=== PATIENT | female | born 1960 | race Caucasian/White ===

== ENCOUNTER 2020-11-12 12:28 | Inpatient (IN) | payer MEDICAID ==
[~2020-11-12] VITALS: Ht 165.1 cm; Wt 79.8 kg
[2020-11-12 14:39] LABS: CHLORIDE 115 mEq/L (98-107); INR 1.4; PROTHROMBIN TIME 15.1 sec (9.6-11.0)
[2020-11-12 14:41] LABS: BASOPHILS % 0.3 % (0.0-2.0); EOSINOPHILS % 0.4 % (0.0-5.0); HEMATOCRIT. 45.6 % (36.0-48.0); HEMOGLOBIN. 15.2 g/dL (12.0-16.0); LYMPHOCYTES % 33.4 % (20.0-50.0); MEAN CORPUSCULAR HEMOGLOBIN 31.2 pg (28.0-32.0); MEAN CORPUSCULAR VOLUME 93.3 fL (81.0-99.0); MEAN PLATELET VOLUME 9.5 fl (7.4-10.4); MONOCYTES % 9.8 % (2.0-8.0); NEUTROPHILS % 56.1 % (40.0-76.0); PLATELET 113 x1000/uL (130-400); RED BLOOD CELL COUNT 4.89 mill/uL (4.2-5.4); RED CELL DISTRIBUTION WIDTH 18.9 % (11.6-14.6)
[2020-11-12 14:44] LABS: ETHANOL BLOOD < 10 mg/dL
[2020-11-12 15:46] LABS: CLARITY URINE CLOUDY (CLEAR); COLOR URINE DARK YELLOW (YELLOW); KETONES URINE TRACE (NEGATIVE); LEUKOCYTE ESTERASE URINE 2+ (NEGATIVE); NITRITE URINE NEGATIVE (NEGATIVE); OCCULT BLOOD URINE 2+ (NEGATIVE); PROTEIN URINE 1+ (NEGATIVE); SPECIFIC GRAVITY URINE 1.026 (1.005-1.030)
[2020-11-12 15:57] LABS: *AMPHETAMINES SCREEN URINE NEGATIVE (NEGATIVE); *BARBITURATES SCREEN URINE NEGATIVE (NEGATIVE); *BENZODIAZEPINES SCREEN URINE NEGATIVE (NEGATIVE); *COCAINE SCREEN URINE NEGATIVE (NEGATIVE)
[2020-11-12 15:58] LABS: CANNABINOID URINE SCREEN NEGATIVE (NEGATIVE); METHADONE URINE SCREEN NEGATIVE (NEGATIVE); OPIATES URINE SCREEN NEGATIVE (NEGATIVE); PHENCYCLIDINE URINE SCREEN NEGATIVE (NEGATIVE)
[2020-11-12] MEDS: LACTULOSE 20G/30ML UDC PO NR ×2 (16:30→18:20)
[2020-11-12] MEDS ORDERED: DOCUSATE SODIUM 100MG CAPSULE PO PRN (17:45)
[2020-11-12] MEDS ORDERED: ONDANSETRON HCL 4MG/2ML INJ IV PRN (17:45)
[2020-11-12] MEDS ORDERED: HYDROCODONE/ACETAMINOPHEN 5/325MG TABLET PO PRN (17:45)
[2020-11-12] MEDS ORDERED: IPRATROPIUM/ALBUTEROL 0.5-3(2.5)MG/3ML NEB HHN PRN (17:45)
[2020-11-12] MEDS: SODIUM CHLORIDE 0.9% 1,000 ML IV SCH (18:22)
[2020-11-12 18:34] LABS: BG CARBOXYHEMOGLOBIN 0.3 % (0.5-1.5); BG DEOXYHEMOGLOBIN 1.5 % (0.0-5.0); BG FRACTION INSPIRED OXYGEN 21; BG HCO3 ACT 14.6 mmol/L (22.0-26.0); BG METHEMOGLOBIN 0.3 % (0.0-1.5); BG OXYGEN SATURATION 98.5 % (92.0-98.5); BG OXYHEMOGLOBIN 97.9 % (94.0-97.0); BG PCO2 17.4 mmHg (35.0-45.0); BG PH 7.543 (7.350-7.450); BG PO2 107.2 mmHg (75.0-100.0); BG SAMPLE SITE RIGHT BRACHIAL; BG TOTAL HEMOGLOBIN 14.1 g/dL (12.0-18.0); BG VENT MODE ROOM AIR
[2020-11-12] MEDS ORDERED: LACTULOSE 300 ML in WATER FOR IRRIGATION,STERILE 700 ML IR NR (19:00)
[2020-11-12] MEDS ORDERED: LACTULOSE 20G/30ML UDC PO SCH (22:00)
[2020-11-12] MEDS ORDERED: ALBUMIN HUMAN 25GM/100ML (25%) IV NR (23:15)
[2020-11-12] MEDS ORDERED: LEVOFLOXACIN 500MG PREMIX 100 ML IV NR (23:30)
[2020-11-12] MEDS ORDERED: FOLIC ACID 1 MG in SODIUM CHLORIDE 0.9% 500 ML IV NR (23:30)
[2020-11-13] MEDS: THIAMINE HCL 200 MG in SODIUM CHLORIDE 0.9% 98 ML IV SCH (01:31)
[2020-11-13] MEDS: LORAZEPAM 0.5MG TABLET PO PRN ×2 (02:47→07:45)
[2020-11-13 03:11] LABS: HEPATITIS B SURFACE ANTIGEN NEGATIVE
[2020-11-13] MEDS: LACTULOSE 20G/30ML UDC PO SCH ×3 (04:26→21:35)
[2020-11-13 04:40] LABS: BASOPHILS % 0.6 % (0.0-2.0); EOSINOPHILS % 0.8 % (0.0-5.0); HEMOGLOBIN. 13.6 g/dL (12.0-16.0); LYMPHOCYTES % 29.9 % (20.0-50.0); MEAN CORPUSCULAR VOLUME 91.6 fL (81.0-99.0); MONOCYTES % 9.8 % (2.0-8.0); NEUTROPHILS % 58.9 % (40.0-76.0); RED BLOOD CELL COUNT 4.37 mill/uL (4.2-5.4); RED CELL DISTRIBUTION WIDTH 18.8 % (11.6-14.6)
[2020-11-13 04:48] LABS: CHLORIDE 119 mEq/L (98-107)
[2020-11-13] MEDS: SODIUM CHLORIDE 0.9% 1,000 ML IV SCH ×2 (06:21→21:35)
[2020-11-13] MEDS: RIFAXIMIN 550 MG TABLET PO SCH ×2 (08:47→21:35)
[2020-11-13 10:21] LABS: MEAN PLATELET VOLUME 9.3 fl (7.4-10.4); PLATELET 99 x1000/uL (130-400)
[2020-11-13 15:00] VITALS: BP 116/56
[2020-11-13 16:20] VITALS: BP 113/57
[2020-11-13 18:37] LABS: FOLIC ACID (FOLATE) SERUM >20 ng/mL ng/mL (>5.38)
[2020-11-13 20:00] VITALS: BP 106/61
[2020-11-13 23:19] LABS: VITAMIN B12 SERUM 1135 pg/mL (211-911)
[2020-11-14] VITALS: BP 138/90
[2020-11-14] MEDS: THIAMINE HCL 200 MG in SODIUM CHLORIDE 0.9% 98 ML IV SCH ×2 (00:15→23:24)
[2020-11-14] MEDS ORDERED: ZINC220T4 (01:16)
[2020-11-14] MEDS ORDERED: DOCU100T MT (01:16)
[2020-11-14] MEDS ORDERED: KEPP500 MT (01:16)
[2020-11-14] MEDS ORDERED: ASCO-339 PO (01:16)
[2020-11-14] MEDS ORDERED: FURO20TA4 MT (01:16)
[2020-11-14] MEDS ORDERED: ASPI-1497 MT (01:16)
[2020-11-14] MEDS ORDERED: PANT40TA51 MT (01:16)
[2020-11-14] MEDS ORDERED: LACT10SO7 MT (01:16)
[2020-11-14] MEDS ORDERED: LIDO1ADH71 TOP (01:21)
[2020-11-14] MEDS ORDERED: SENN-257 MT (01:21)
[2020-11-14] MEDS ORDERED: SPIR25TA6 MT (01:21)
[2020-11-14 04:00] VITALS: BP 144/87
[2020-11-14] MEDS: LORAZEPAM 0.5MG TABLET PO PRN (04:06)
[2020-11-14] MEDS: LACTULOSE 20G/30ML UDC PO SCH ×2 (05:43→13:46)
[2020-11-14 08:00] VITALS: BP 144/88
[2020-11-14] MEDS ORDERED: LEVOFLOXACIN 250MG PREMIX 50 ML IV SCH (08:00)
[2020-11-14] MEDS: RIFAXIMIN 550 MG TABLET PO SCH ×2 (08:17→20:57)
[2020-11-14] MEDS: FOLIC ACID 1 MG in SODIUM CHLORIDE 0.9% 500 ML IV SCH (08:17)
[2020-11-14 09:37] LABS: BASOPHILS % 0.3 % (0.0-2.0); EOSINOPHILS % 1.3 % (0.0-5.0); HEMATOCRIT. 37.5 % (36.0-48.0); HEMOGLOBIN. 12.3 g/dL (12.0-16.0); LYMPHOCYTES % 28.7 % (20.0-50.0); MEAN CORPUSCULAR HEMOGLOBIN 30.6 pg (28.0-32.0); MEAN CORPUSCULAR VOLUME 93.3 fL (81.0-99.0); MEAN PLATELET VOLUME 9.2 fl (7.4-10.4); MONOCYTES % 10.9 % (2.0-8.0); NEUTROPHILS % 58.8 % (40.0-76.0); PLATELET 108 x1000/uL (130-400); RED BLOOD CELL COUNT 4.02 mill/uL (4.2-5.4); RED CELL DISTRIBUTION WIDTH 18.6 % (11.6-14.6)
[2020-11-14 09:40] LABS: CHLORIDE 124 mEq/L (98-107)
[2020-11-14 12:00] VITALS: BP 159/80
[2020-11-14] MEDS: SODIUM CHLORIDE 0.9% 1,000 ML IV SCH (13:47)
[2020-11-14 16:00] VITALS: BP 146/88
[2020-11-14] MEDS ORDERED: LACTULOSE 300 ML in WATER FOR IRRIGATION,STERILE 700 ML IR NR (18:00)
[2020-11-14] MEDS: POLYVINYL ALCOHOL OPHTH DROPS 15ML BOTHEYE SCH (18:21)
[2020-11-14] MEDS: NITROFURANTOIN 100MG M/M CAPSULE PO SCH (18:21)
[2020-11-14] MEDS: ERYTHROMYCIN BASE 0.5% OPHTH OINT 3.5GM BOTHEYE SCH (18:21)
[2020-11-14] MEDS: LACTULOSE 20G/30ML UDC NG SCH ×2 (18:21→20:57)
[2020-11-14 20:00] VITALS: BP 154/87
[2020-11-15] VITALS: BP 148/86
[2020-11-15] MEDS: ACETAMINOPHEN 325MG TABLET PO PRN (00:07)
[2020-11-15] MEDS: ERYTHROMYCIN BASE 0.5% OPHTH OINT 3.5GM BOTHEYE SCH ×3 (00:08→17:41)
[2020-11-15] MEDS: SODIUM CHLORIDE 0.9% 1,000 ML IV SCH ×2 (00:08→13:10)
[2020-11-15] MEDS: POLYVINYL ALCOHOL OPHTH DROPS 15ML BOTHEYE SCH ×4 (00:08→17:41)
[2020-11-15] MEDS: LACTULOSE 20G/30ML UDC NG SCH ×6 (00:19→21:12)
[2020-11-15 04:00] VITALS: BP 141/83
[2020-11-15 08:00] VITALS: BP 140/80
[2020-11-15] MEDS: RIFAXIMIN 550 MG TABLET PO SCH ×2 (09:20→21:12)
[2020-11-15] MEDS: NITROFURANTOIN 100MG M/M CAPSULE PO SCH ×2 (09:20→17:41)
[2020-11-15] MEDS: FOLIC ACID 1 MG in SODIUM CHLORIDE 0.9% 500 ML IV SCH (09:20)
[2020-11-15 10:00] LABS: BASOPHILS % 0.3 % (0.0-2.0); EOSINOPHILS % 0.8 % (0.0-5.0); HEMATOCRIT. 38.8 % (36.0-48.0); HEMOGLOBIN. 12.6 g/dL (12.0-16.0); LYMPHOCYTES % 26.3 % (20.0-50.0); MEAN CORPUSCULAR HEMOGLOBIN 30.2 pg (28.0-32.0); MEAN CORPUSCULAR VOLUME 92.5 fL (81.0-99.0); MEAN PLATELET VOLUME 8.8 fl (7.4-10.4); MONOCYTES % 9.9 % (2.0-8.0); NEUTROPHILS % 62.7 % (40.0-76.0); PLATELET 115 x1000/uL (130-400); RED BLOOD CELL COUNT 4.19 mill/uL (4.2-5.4); RED CELL DISTRIBUTION WIDTH 18.3 % (11.6-14.6)
[2020-11-15 10:07] LABS: CHLORIDE 125 mEq/L (98-107)
[2020-11-15 12:00] VITALS: BP 166/82
[2020-11-15 16:00] VITALS: BP 160/86
[2020-11-15 20:00] VITALS: BP 160/97
[2020-11-15] MEDS: THIAMINE HCL 200 MG in SODIUM CHLORIDE 0.9% 98 ML IV SCH (22:53)
[2020-11-16] VITALS: BP 140/88
[2020-11-16] MEDS: ERYTHROMYCIN BASE 0.5% OPHTH OINT 3.5GM BOTHEYE SCH ×3 (00:08→18:35)
[2020-11-16] MEDS: POLYVINYL ALCOHOL OPHTH DROPS 15ML BOTHEYE SCH ×5 (00:08→23:11)
[2020-11-16] MEDS: LACTULOSE 20G/30ML UDC NG SCH ×7 (00:17→22:54)
[2020-11-16] MEDS: SODIUM CHLORIDE 0.9% 1,000 ML IV SCH (02:33)
[2020-11-16 04:00] VITALS: BP 145/89
[2020-11-16 06:27] LABS: CHLORIDE 130 mEq/L (98-107)
[2020-11-16] MEDS ORDERED: POTASSIUM CHLORIDE 20MEQ/PACKET PO NR (07:15)
[2020-11-16 07:19] LABS: BASOPHILS % 0.4 % (0.0-2.0); EOSINOPHILS % 0.8 % (0.0-5.0); HEMATOCRIT. 39.9 % (36.0-48.0); HEMOGLOBIN. 12.8 g/dL (12.0-16.0); LYMPHOCYTES % 34.2 % (20.0-50.0); MEAN CORPUSCULAR VOLUME 96.5 fL (81.0-99.0); MEAN PLATELET VOLUME 9.2 fl (7.4-10.4); MONOCYTES % 10.2 % (2.0-8.0); NEUTROPHILS % 54.4 % (40.0-76.0); PLATELET 114 x1000/uL (130-400); RED BLOOD CELL COUNT 4.13 mill/uL (4.2-5.4); RED CELL DISTRIBUTION WIDTH 18.6 % (11.6-14.6)
[2020-11-16 08:23] VITALS: BP 150/98
[2020-11-16] MEDS ORDERED: KCL 20MEQ/100ML PREMIX 100 ML IV NR (09:00)
[2020-11-16] MEDS: NITROFURANTOIN 100MG M/M CAPSULE PO SCH ×2 (09:39→18:30)
[2020-11-16] MEDS: DEXT 5%/0.45% NACL 1000ML 1,000 ML IV SCH ×2 (09:42→20:35)
[2020-11-16] MEDS: FOLIC ACID 1 MG in SODIUM CHLORIDE 0.9% 500 ML IV SCH (11:45)
[2020-11-16] MEDS: RIFAXIMIN 550 MG TABLET PO SCH ×3 (11:53→22:58)
[2020-11-16 12:12] VITALS: BP 147/96
[2020-11-16 16:04] VITALS: BP 138/88
[2020-11-16 20:00] VITALS: BP 141/91
[2020-11-16] MEDS: THIAMINE HCL 200 MG in SODIUM CHLORIDE 0.9% 98 ML IV SCH (22:58)
[2020-11-17] VITALS: BP 137/92
[2020-11-17] MEDS: LACTULOSE 20G/30ML UDC NG SCH ×6 (01:15→21:39)
[2020-11-17] MEDS: ERYTHROMYCIN BASE 0.5% OPHTH OINT 3.5GM BOTHEYE SCH ×3 (02:40→17:08)
[2020-11-17 04:00] VITALS: BP 144/89
[2020-11-17 05:09] LABS: BASOPHILS % 0.3 % (0.0-2.0); EOSINOPHILS % 0.2 % (0.0-5.0); HEMATOCRIT. 38.7 % (36.0-48.0); HEMOGLOBIN. 12.7 g/dL (12.0-16.0); LYMPHOCYTES % 29.4 % (20.0-50.0); MEAN CORPUSCULAR HEMOGLOBIN 30.8 pg (28.0-32.0); MEAN CORPUSCULAR VOLUME 94.1 fL (81.0-99.0); MEAN PLATELET VOLUME 8.9 fl (7.4-10.4); MONOCYTES % 9.3 % (2.0-8.0); NEUTROPHILS % 60.8 % (40.0-76.0); PLATELET 108 x1000/uL (130-400); RED BLOOD CELL COUNT 4.11 mill/uL (4.2-5.4); RED CELL DISTRIBUTION WIDTH 18.4 % (11.6-14.6)
[2020-11-17 05:19] LABS: CHLORIDE 134 mEq/L (98-107)
[2020-11-17] MEDS: POLYVINYL ALCOHOL OPHTH DROPS 15ML BOTHEYE SCH ×3 (06:55→17:18)
[2020-11-17 08:07] VITALS: BP 149/98
[2020-11-17] MEDS: NITROFURANTOIN 100MG M/M CAPSULE PO SCH ×2 (09:39→17:08)
[2020-11-17] MEDS: RIFAXIMIN 550 MG TABLET PO SCH ×2 (09:39→21:39)
[2020-11-17 11:22] VITALS: BP 161/91
[2020-11-17] MEDS: FOLIC ACID 1 MG in SODIUM CHLORIDE 0.9% 500 ML IV SCH (12:49)
[2020-11-17] MEDS: DEXT 5%/0.45% NACL 1000ML 1,000 ML IV SCH ×2 (12:50→23:15)
[2020-11-17 16:11] VITALS: BP 100/53
[2020-11-17 20:00] VITALS: BP 141/89
[2020-11-18] VITALS: BP 140/89
[2020-11-18] MEDS: ERYTHROMYCIN BASE 0.5% OPHTH OINT 3.5GM BOTHEYE SCH ×3 (00:34→13:37)
[2020-11-18] MEDS: POLYVINYL ALCOHOL OPHTH DROPS 15ML BOTHEYE SCH ×4 (00:34→18:00)
[2020-11-18] MEDS: LACTULOSE 20G/30ML UDC NG SCH ×6 (02:10→21:26)
[2020-11-18 04:00] VITALS: BP 154/93
[2020-11-18 06:43] LABS: CHLORIDE 133 mEq/L (98-107)
[2020-11-18 06:52] LABS: BASOPHILS % 0.4 % (0.0-2.0); EOSINOPHILS % 0.5 % (0.0-5.0); HEMATOCRIT. 37.2 % (36.0-48.0); HEMOGLOBIN. 12.4 g/dL (12.0-16.0); LYMPHOCYTES % 32.5 % (20.0-50.0); MEAN CORPUSCULAR HEMOGLOBIN 31.2 pg (28.0-32.0); MEAN CORPUSCULAR VOLUME 93.7 fL (81.0-99.0); MEAN PLATELET VOLUME 8.7 fl (7.4-10.4); MONOCYTES % 9.3 % (2.0-8.0); NEUTROPHILS % 57.3 % (40.0-76.0); PLATELET 101 x1000/uL (130-400); RED BLOOD CELL COUNT 3.98 mill/uL (4.2-5.4); RED CELL DISTRIBUTION WIDTH 18.3 % (11.6-14.6)
[2020-11-18] MEDS: RIFAXIMIN 550 MG TABLET PO SCH (09:00)
[2020-11-18] MEDS: NITROFURANTOIN 100MG M/M CAPSULE PO SCH ×2 (11:30→17:00)
[2020-11-18] MEDS: DEXT 5%/0.45% NACL 1000ML 1,000 ML IV SCH (12:35)
[2020-11-18] MEDS: FOLIC ACID 1 MG in SODIUM CHLORIDE 0.9% 500 ML IV SCH (13:36)
[2020-11-18 20:00] VITALS: BP 117/73
[2020-11-18] MEDS: ACETAMINOPHEN 325MG TABLET PO PRN (21:28)
[2020-11-18] MEDS ORDERED: POTASSIUM CHLORIDE 20MEQ TABLET SR PO NR (22:45)
[2020-11-19] VITALS: BP 142/92
[2020-11-19] MEDS: POLYVINYL ALCOHOL OPHTH DROPS 15ML BOTHEYE SCH ×5 (00:05→23:54)
[2020-11-19] MEDS: ERYTHROMYCIN BASE 0.5% OPHTH OINT 3.5GM BOTHEYE SCH ×3 (00:05→17:04)
[2020-11-19] MEDS: RIFAXIMIN 550 MG TABLET PO SCH ×3 (00:13→21:22)
[2020-11-19] MEDS: DEXT 5%/0.45% NACL 1000ML 1,000 ML IV SCH (01:55)
[2020-11-19 04:00] VITALS: BP 140/75
[2020-11-19] MEDS: LACTULOSE 20G/30ML UDC NG SCH ×5 (06:15→21:22)
[2020-11-19 06:43] LABS: CHLORIDE 125 mEq/L (98-107)
[2020-11-19 06:47] LABS: BASOPHILS % 0.3 % (0.0-2.0); EOSINOPHILS % 0.4 % (0.0-5.0); HEMATOCRIT. 39.9 % (36.0-48.0); HEMOGLOBIN. 13.2 g/dL (12.0-16.0); LYMPHOCYTES % 33.2 % (20.0-50.0); MEAN CORPUSCULAR HEMOGLOBIN 30.9 pg (28.0-32.0); MEAN CORPUSCULAR VOLUME 93.2 fL (81.0-99.0); MEAN PLATELET VOLUME 8.8 fl (7.4-10.4); NEUTROPHILS % 57.1 % (40.0-76.0); PLATELET 109 x1000/uL (130-400); RED BLOOD CELL COUNT 4.28 mill/uL (4.2-5.4); RED CELL DISTRIBUTION WIDTH 18.6 % (11.6-14.6)
[2020-11-19 08:00] VITALS: BP 156/88
[2020-11-19] MEDS ORDERED: RIFAXIMIN 550 MG TABLET PO SCH (09:00)
[2020-11-19] MEDS: NITROFURANTOIN 100MG M/M CAPSULE PO SCH ×2 (09:22→17:03)
[2020-11-19] MEDS: DEXTROSE 5% WATER 1,000 ML IV SCH ×2 (09:45→14:59)
[2020-11-19] MEDS: PANTOPRAZOLE 40MG DR TABLET PO SCH (10:45)
[2020-11-19] MEDS ORDERED: POTASSIUM CHLORIDE 20MEQ/PACKET PO SCH (10:45)
[2020-11-19 12:00] VITALS: BP 166/87
[2020-11-19] MEDS: ASPIRIN 81MG EC TABLET PO SCH (12:12)
[2020-11-19] MEDS: ASCORBIC ACID 500 MG TABLET PO SCH (12:13)
[2020-11-19] MEDS: ZINC SULFATE 220 MG ( 50 ) CAPSULE PO SCH (12:13)
[2020-11-19] MEDS: LEVETIRACETAM 500MG TABLET PO SCH (12:13)
[2020-11-19] MEDS: SPIRONOLACTONE 25MG TABLET PO SCH (12:13)
[2020-11-19] MEDS ORDERED: LIDOCAINE HCL 1% 20ML VIAL (Pyxis) INJ ONE (12:18)
[2020-11-19] MEDS: FUROSEMIDE 20MG TABLET PO SCH (12:21)
[2020-11-19 16:00] VITALS: BP 155/91
[2020-11-19 20:00] VITALS: BP 139/88
[2020-11-20] VITALS: BP 155/91
[2020-11-20] MEDS: ERYTHROMYCIN BASE 0.5% OPHTH OINT 3.5GM BOTHEYE SCH ×3 (00:30→17:09)
[2020-11-20] MEDS: LACTULOSE 20G/30ML UDC NG SCH ×6 (00:34→21:03)
[2020-11-20] MEDS: DEXTROSE 5% WATER 1,000 ML IV SCH ×2 (00:34→12:25)
[2020-11-20 04:00] VITALS: BP 133/90
[2020-11-20] MEDS: POLYVINYL ALCOHOL OPHTH DROPS 15ML BOTHEYE SCH ×3 (05:20→17:20)
[2020-11-20 06:49] LABS: BASOPHILS % 0.3 % (0.0-2.0); EOSINOPHILS % 0.8 % (0.0-5.0); HEMATOCRIT. 36.1 % (36.0-48.0); HEMOGLOBIN. 12.1 g/dL (12.0-16.0); LYMPHOCYTES % 33.7 % (20.0-50.0); MEAN CORPUSCULAR HEMOGLOBIN 30.9 pg (28.0-32.0); MEAN CORPUSCULAR VOLUME 92.1 fL (81.0-99.0); MEAN PLATELET VOLUME 8.8 fl (7.4-10.4); MONOCYTES % 9.9 % (2.0-8.0); NEUTROPHILS % 55.3 % (40.0-76.0); PLATELET 88 x1000/uL (130-400); RED BLOOD CELL COUNT 3.92 mill/uL (4.2-5.4); RED CELL DISTRIBUTION WIDTH 18.7 % (11.6-14.6)
[2020-11-20 07:17] LABS: CHLORIDE 124 mEq/L (98-107)
[2020-11-20 07:30] LABS: PHOSPHORUS 1.4 mg/dL (2.5-4.9)
[2020-11-20 08:00] VITALS: BP 148/83
[2020-11-20] MEDS: LEVETIRACETAM 500MG TABLET PO SCH (08:14)
[2020-11-20] MEDS: RIFAXIMIN 550 MG TABLET PO SCH ×2 (08:14→21:36)
[2020-11-20] MEDS: PANTOPRAZOLE 40MG DR TABLET PO SCH (08:14)
[2020-11-20] MEDS: ZINC SULFATE 220 MG ( 50 ) CAPSULE PO SCH (08:14)
[2020-11-20] MEDS: FUROSEMIDE 20MG TABLET PO SCH (08:15)
[2020-11-20] MEDS: ASCORBIC ACID 500 MG TABLET PO SCH (08:15)
[2020-11-20] MEDS: ASPIRIN 81MG EC TABLET PO SCH (08:15)
[2020-11-20] MEDS: SPIRONOLACTONE 25MG TABLET PO SCH (08:15)
[2020-11-20 12:00] VITALS: BP 134/89
[2020-11-20] MEDS ORDERED: POTASSIUM PHOS,M-BASIC-D-BASIC 20 MMOL in DEXT 5% WATER 243.3333 ML IV NR (14:00)
[2020-11-20] MEDS ORDERED: MAGNESIUM 4 G PREMIX 100 ML IV NR (14:00)
[2020-11-20 16:00] VITALS: BP 130/74
[2020-11-20] MEDS: MEGESTROL ACETATE 400 MG/10 ML UDC PO SCH (17:09)
[2020-11-20 20:00] VITALS: BP 121/64
[2020-11-21] VITALS: BP 109/65
[2020-11-21] MEDS: LACTULOSE 20G/30ML UDC NG SCH ×6 (00:49→21:25)
[2020-11-21] MEDS: DEXTROSE 5% WATER 1,000 ML IV SCH ×2 (00:53→10:02)
[2020-11-21] MEDS: ERYTHROMYCIN BASE 0.5% OPHTH OINT 3.5GM BOTHEYE SCH ×3 (00:53→16:48)
[2020-11-21] MEDS: POLYVINYL ALCOHOL OPHTH DROPS 15ML BOTHEYE SCH ×4 (00:53→18:00)
[2020-11-21 04:00] VITALS: BP 110/60
[2020-11-21 05:39] LABS: BASOPHILS % 0.3 % (0.0-2.0); EOSINOPHILS % 1.7 % (0.0-5.0); HEMATOCRIT. 36.5 % (36.0-48.0); HEMOGLOBIN. 11.9 g/dL (12.0-16.0); LYMPHOCYTES % 31.6 % (20.0-50.0); MEAN CORPUSCULAR HEMOGLOBIN 30.4 pg (28.0-32.0); MEAN CORPUSCULAR VOLUME 93.3 fL (81.0-99.0); MEAN PLATELET VOLUME 9.2 fl (7.4-10.4); MONOCYTES % 8.2 % (2.0-8.0); NEUTROPHILS % 58.2 % (40.0-76.0); PLATELET 85 x1000/uL (130-400); RED BLOOD CELL COUNT 3.92 mill/uL (4.2-5.4); RED CELL DISTRIBUTION WIDTH 18.3 % (11.6-14.6)
[2020-11-21 05:50] LABS: INR 1.7; PROTHROMBIN TIME 17.5 sec (9.6-11.0)
[2020-11-21 05:53] LABS: CHLORIDE 116 mEq/L (98-107)
[2020-11-21 06:00] LABS: PHOSPHORUS 2.2 mg/dL (2.5-4.9)
[2020-11-21] MEDS: PANTOPRAZOLE 40MG DR TABLET PO SCH (06:15)
[2020-11-21 08:11] VITALS: BP 127/73
[2020-11-21] MEDS: ASPIRIN 81MG EC TABLET PO SCH (10:00)
[2020-11-21] MEDS: FUROSEMIDE 20MG TABLET PO SCH (10:00)
[2020-11-21] MEDS: ASCORBIC ACID 500 MG TABLET PO SCH (10:00)
[2020-11-21] MEDS: MEGESTROL ACETATE 400 MG/10 ML UDC PO SCH (10:00)
[2020-11-21] MEDS: LEVETIRACETAM 500MG TABLET PO SCH (10:01)
[2020-11-21] MEDS: SPIRONOLACTONE 25MG TABLET PO SCH (10:01)
[2020-11-21] MEDS: RIFAXIMIN 550 MG TABLET PO SCH ×2 (10:01→21:25)
[2020-11-21] MEDS: ZINC SULFATE 220 MG ( 50 ) CAPSULE PO SCH (10:02)
[2020-11-21 11:05] VITALS: BP 126/75
[2020-11-21] MEDS ORDERED: POTASSIUM PHOS,M-BASIC-D-BASIC 20 MMOL in DEXT 5% WATER 243.3333 ML IV NR (12:00)
[2020-11-21] MEDS: ACETAMINOPHEN 325MG TABLET PO PRN (16:40)
[2020-11-21 16:44] VITALS: BP 133/71
[2020-11-21 20:00] VITALS: BP 154/55
[2020-11-22] VITALS: BP 124/66
[2020-11-22] MEDS: POLYVINYL ALCOHOL OPHTH DROPS 15ML BOTHEYE SCH ×4 (00:03→18:05)
[2020-11-22] MEDS: LACTULOSE 20G/30ML UDC NG SCH ×6 (01:54→21:35)
[2020-11-22 04:00] VITALS: BP 133/78
[2020-11-22] MEDS: DEXTROSE 5% WATER 1,000 ML IV SCH ×2 (04:10→17:45)
[2020-11-22 07:06] LABS: CHLORIDE 111 mEq/L (98-107)
[2020-11-22 07:13] LABS: PHOSPHORUS 2.2 mg/dL (2.5-4.9)
[2020-11-22 08:15] VITALS: BP 112/77
[2020-11-22 08:30] LABS: BASOPHILS % 0.3 % (0.0-2.0); EOSINOPHILS % 1.4 % (0.0-5.0); HEMATOCRIT. 39.2 % (36.0-48.0); LYMPHOCYTES % 25.2 % (20.0-50.0); MEAN CORPUSCULAR HEMOGLOBIN 30.7 pg (28.0-32.0); MEAN CORPUSCULAR VOLUME 92.4 fL (81.0-99.0); MONOCYTES % 7.9 % (2.0-8.0); NEUTROPHILS % 65.2 % (40.0-76.0); PLATELET 84 x1000/uL (130-400); RED BLOOD CELL COUNT 4.24 mill/uL (4.2-5.4); RED CELL DISTRIBUTION WIDTH 18.1 % (11.6-14.6)
[2020-11-22] MEDS: ASCORBIC ACID 500 MG TABLET PO SCH (09:46)
[2020-11-22] MEDS: LEVETIRACETAM 500MG TABLET PO SCH (09:46)
[2020-11-22] MEDS: SPIRONOLACTONE 25MG TABLET PO SCH (09:47)
[2020-11-22] MEDS: PANTOPRAZOLE 40MG DR TABLET PO SCH (09:48)
[2020-11-22] MEDS: FUROSEMIDE 20MG TABLET PO SCH (09:48)
[2020-11-22] MEDS: RIFAXIMIN 550 MG TABLET PO SCH ×2 (09:48→21:35)
[2020-11-22] MEDS: ASPIRIN 81MG EC TABLET PO SCH (09:49)
[2020-11-22] MEDS: ZINC SULFATE 220 MG ( 50 ) CAPSULE PO SCH (09:49)
[2020-11-22] MEDS: ACETAMINOPHEN 325MG TABLET PO PRN ×2 (09:50→21:34)
[2020-11-22] MEDS ORDERED: SODIUM PHOS,M-BASIC-D-BASIC 15 MM in DEXT 5% WATER 245 ML IV NR (11:00)
[2020-11-22] MEDS: SODIUM BICARBONATE 50 MEQ in SODIUM CHLORIDE 0.45% 1,000 ML IV SCH ×2 (11:48→12:13)
[2020-11-22 12:02] VITALS: BP 112/79
[2020-11-22] MEDS ORDERED: RIFA550T PO (12:09)
[2020-11-22] MEDS: MEGESTROL ACETATE 400 MG/10 ML UDC PO SCH (12:24)
[2020-11-22 20:00] VITALS: BP 125/86
[2020-11-23] VITALS: BP 131/82
[2020-11-23 04:00] VITALS: BP 127/69
[2020-11-23 05:58] LABS: BASOPHILS % 0.2 % (0.0-2.0); EOSINOPHILS % 0.7 % (0.0-5.0); HEMATOCRIT. 36.7 % (36.0-48.0); HEMOGLOBIN. 12.4 g/dL (12.0-16.0); LYMPHOCYTES % 21.6 % (20.0-50.0); MEAN CORPUSCULAR HEMOGLOBIN 30.7 pg (28.0-32.0); MEAN CORPUSCULAR VOLUME 90.7 fL (81.0-99.0); MEAN PLATELET VOLUME 9.8 fl (7.4-10.4); MONOCYTES % 8.8 % (2.0-8.0); NEUTROPHILS % 68.7 % (40.0-76.0); PLATELET 107 x1000/uL (130-400); RED BLOOD CELL COUNT 4.05 mill/uL (4.2-5.4); RED CELL DISTRIBUTION WIDTH 17.7 % (11.6-14.6)
[2020-11-23 06:14] LABS: CHLORIDE 106 mEq/L (98-107)
[2020-11-23] MEDS: LACTULOSE 20G/30ML UDC NG SCH ×6 (06:17→20:54)
[2020-11-23] MEDS: DEXTROSE 5% WATER 1,000 ML IV SCH ×2 (06:17→20:54)
[2020-11-23] MEDS: PANTOPRAZOLE 40MG DR TABLET PO SCH (06:17)
[2020-11-23] MEDS: POLYVINYL ALCOHOL OPHTH DROPS 15ML BOTHEYE SCH ×4 (06:18→17:46)
[2020-11-23 06:20] LABS: PHOSPHORUS 2.4 mg/dL (2.5-4.9)
[2020-11-23 08:00] VITALS: BP 140/73
[2020-11-23] MEDS: RIFAXIMIN 550 MG TABLET PO SCH ×2 (10:07→20:54)
[2020-11-23] MEDS: LEVETIRACETAM 500MG TABLET PO SCH (10:07)
[2020-11-23] MEDS: ASPIRIN 81MG EC TABLET PO SCH (10:08)
[2020-11-23] MEDS: ZINC SULFATE 220 MG ( 50 ) CAPSULE PO SCH (10:08)
[2020-11-23] MEDS: FUROSEMIDE 20MG TABLET PO SCH (10:08)
[2020-11-23] MEDS: ASCORBIC ACID 500 MG TABLET PO SCH (10:08)
[2020-11-23] MEDS: SPIRONOLACTONE 25MG TABLET PO SCH (10:09)
[2020-11-23] MEDS: MEGESTROL ACETATE 400 MG/10 ML UDC PO SCH (10:09)
[2020-11-23 12:00] VITALS: BP 133/63
[2020-11-23] MEDS: SODIUM BICARBONATE 50 MEQ in SODIUM CHLORIDE 0.45% 1,000 ML IV SCH ×2 (15:00)
[2020-11-23 16:00] VITALS: BP 121/64
[2020-11-23] MEDS: SODIUM PHOS,M-BASIC-D-BASIC 15 MM in DEXT 5% WATER 250 ML IV SCH (17:45)
[2020-11-23 20:00] VITALS: BP 106/76
[2020-11-24] VITALS: BP 129/65
[2020-11-24] MEDS: LACTULOSE 20G/30ML UDC NG SCH ×6 (00:08→21:11)
[2020-11-24] MEDS: POLYVINYL ALCOHOL OPHTH DROPS 15ML BOTHEYE SCH ×4 (00:08→18:09)
[2020-11-24 04:00] VITALS: BP 129/80
[2020-11-24] MEDS: SODIUM BICARBONATE 50 MEQ in SODIUM CHLORIDE 0.45% 1,000 ML IV SCH ×2 (05:13→18:09)
[2020-11-24 08:00] VITALS: BP 142/86
[2020-11-24] MEDS: RIFAXIMIN 550 MG TABLET PO SCH (08:19)
[2020-11-24] MEDS: ASPIRIN 81MG EC TABLET PO SCH (08:19)
[2020-11-24] MEDS: ZINC SULFATE 220 MG ( 50 ) CAPSULE PO SCH (08:19)
[2020-11-24] MEDS: ASCORBIC ACID 500 MG TABLET PO SCH (08:19)
[2020-11-24] MEDS: PANTOPRAZOLE 40MG DR TABLET PO SCH (08:19)
[2020-11-24] MEDS: FUROSEMIDE 20MG TABLET PO SCH (08:19)
[2020-11-24] MEDS: SPIRONOLACTONE 25MG TABLET PO SCH (08:20)
[2020-11-24] MEDS: MEGESTROL ACETATE 400 MG/10 ML UDC PO SCH (08:20)
[2020-11-24] MEDS: LEVETIRACETAM 500MG TABLET PO SCH (08:20)
[2020-11-24 10:58] LABS: BASOPHILS % 0.4 % (0.0-2.0); EOSINOPHILS % 0.5 % (0.0-5.0); HEMATOCRIT. 36.6 % (36.0-48.0); HEMOGLOBIN. 12.7 g/dL (12.0-16.0); LYMPHOCYTES % 21.5 % (20.0-50.0); MEAN CORPUSCULAR HEMOGLOBIN 31.5 pg (28.0-32.0); MEAN CORPUSCULAR VOLUME 90.5 fL (81.0-99.0); MEAN PLATELET VOLUME 9.8 fl (7.4-10.4); MONOCYTES % 13.1 % (2.0-8.0); NEUTROPHILS % 64.5 % (40.0-76.0); PLATELET 104 x1000/uL (130-400); RED BLOOD CELL COUNT 4.04 mill/uL (4.2-5.4); RED CELL DISTRIBUTION WIDTH 18.1 % (11.6-14.6)
[2020-11-24 11:03] LABS: CHLORIDE 103 mEq/L (98-107)
[2020-11-24 11:09] LABS: PHOSPHORUS 2.8 mg/dL (2.5-4.9)
[2020-11-24 12:00] VITALS: BP 131/85
[2020-11-24 16:00] VITALS: BP 133/85
[2020-11-24] MEDS ORDERED: DEXTROSE 50% WATER 50ML SYRINGE IV PRN ×2 (17:15)
[2020-11-24] MEDS: BLOOD SUGAR DIAGNOSTIC STRIP TEST SCH ×2 (17:20→21:06)
[2020-11-24] MEDS: SODIUM PHOS,M-BASIC-D-BASIC 15 MM in DEXT 5% WATER 250 ML IV SCH (17:25)
[2020-11-24] MEDS: INSULIN LISPRO 100 UNITS/ML SUBCUT SCH ×2 (18:41→21:12)
[2020-11-24 20:00] VITALS: BP 130/80
[2020-11-25] VITALS: BP 110/75
[2020-11-25] MEDS: POLYVINYL ALCOHOL OPHTH DROPS 15ML BOTHEYE SCH ×5 (00:21→23:16)
[2020-11-25] MEDS: LACTULOSE 20G/30ML UDC NG SCH ×6 (00:22→21:27)
[2020-11-25 04:00] VITALS: BP 117/77
[2020-11-25] MEDS: PANTOPRAZOLE 40MG DR TABLET PO SCH (06:26)
[2020-11-25] MEDS: BLOOD SUGAR DIAGNOSTIC STRIP TEST SCH ×4 (06:26→21:27)
[2020-11-25] MEDS: INSULIN LISPRO 100 UNITS/ML SUBCUT SCH ×4 (06:27→21:45)
[2020-11-25] MEDS ORDERED: LACTULOSE 20G/30ML UDC PO ONE (07:15)
[2020-11-25] MEDS ORDERED: LACTULOSE 20G/30ML UDC PO PRN (07:15)
[2020-11-25 08:00] VITALS: BP 120/78
[2020-11-25] MEDS: SODIUM BICARBONATE 50 MEQ in SODIUM CHLORIDE 0.45% 1,000 ML IV SCH (09:25)
[2020-11-25] MEDS: ASPIRIN 81MG EC TABLET PO SCH (09:26)
[2020-11-25] MEDS: FUROSEMIDE 20MG TABLET PO SCH (09:26)
[2020-11-25] MEDS: LEVETIRACETAM 500MG TABLET PO SCH (09:26)
[2020-11-25] MEDS: SPIRONOLACTONE 25MG TABLET PO SCH (09:26)
[2020-11-25] MEDS: ASCORBIC ACID 500 MG TABLET PO SCH (09:26)
[2020-11-25] MEDS: ZINC SULFATE 220 MG ( 50 ) CAPSULE PO SCH (09:26)
[2020-11-25] MEDS: MEGESTROL ACETATE 400 MG/10 ML UDC PO SCH (09:27)
[2020-11-25 09:35] LABS: BASOPHILS % 0.4 % (0.0-2.0); CHLORIDE 101 mEq/L (98-107); EOSINOPHILS % 0.5 % (0.0-5.0); HEMATOCRIT. 37.2 % (36.0-48.0); HEMOGLOBIN. 12.6 g/dL (12.0-16.0); LYMPHOCYTES % 16.4 % (20.0-50.0); MEAN CORPUSCULAR HEMOGLOBIN 31.3 pg (28.0-32.0); MEAN CORPUSCULAR VOLUME 92.5 fL (81.0-99.0); MEAN PLATELET VOLUME 10.3 fl (7.4-10.4); MONOCYTES % 12.4 % (2.0-8.0); NEUTROPHILS % 70.3 % (40.0-76.0); PLATELET 124 x1000/uL (130-400); RED BLOOD CELL COUNT 4.02 mill/uL (4.2-5.4); RED CELL DISTRIBUTION WIDTH 18.3 % (11.6-14.6)
[2020-11-25 09:41] LABS: PHOSPHORUS 3.4 mg/dL (2.5-4.9)
[2020-11-25 12:00] VITALS: BP 104/72
[2020-11-25] MEDS ORDERED: DEXTROSE 50% WATER 50ML SYRINGE IV PRN (12:15)
[2020-11-25] MEDS ORDERED: BLOOD SUGAR DIAGNOSTIC STRIP TEST SCH (12:20)
[2020-11-25 16:19] VITALS: BP 122/69
[2020-11-25] MEDS: CITRIC ACID/SODIUM CITRATE SOLN 30ML UDC PO SCH ×2 (16:57→23:16)
[2020-11-25 20:00] VITALS: BP 81/53
[2020-11-26] VITALS: BP 78/42
[2020-11-26] MEDS: LACTULOSE 20G/30ML UDC NG SCH ×6 (01:08→21:15)
[2020-11-26 04:00] VITALS: BP 93/46
[2020-11-26] MEDS: POLYVINYL ALCOHOL OPHTH DROPS 15ML BOTHEYE SCH ×3 (05:41→17:18)
[2020-11-26] MEDS: PANTOPRAZOLE 40MG DR TABLET PO SCH (06:52)
[2020-11-26] MEDS: BLOOD SUGAR DIAGNOSTIC STRIP TEST SCH ×4 (06:53→21:43)
[2020-11-26 08:30] VITALS: BP 105/66
[2020-11-26] MEDS: CITRIC ACID/SODIUM CITRATE SOLN 30ML UDC PO SCH ×2 (09:14→21:40)
[2020-11-26] MEDS: MEGESTROL ACETATE 400 MG/10 ML UDC PO SCH (09:14)
[2020-11-26] MEDS: ASPIRIN 81MG EC TABLET PO SCH (09:15)
[2020-11-26] MEDS: ZINC SULFATE 220 MG ( 50 ) CAPSULE PO SCH (09:15)
[2020-11-26] MEDS: SPIRONOLACTONE 25MG TABLET PO SCH (09:15)
[2020-11-26] MEDS: LEVETIRACETAM 500MG TABLET PO SCH (09:15)
[2020-11-26] MEDS: ASCORBIC ACID 500 MG TABLET PO SCH (09:15)
[2020-11-26] MEDS: FUROSEMIDE 20MG TABLET PO SCH (09:15)
[2020-11-26] MEDS: INSULIN LISPRO 100 UNITS/ML SUBCUT SCH ×4 (09:19→21:48)
[2020-11-26 12:00] VITALS: BP 96/67
[2020-11-26] MEDS: ACETAMINOPHEN 325MG TABLET PO PRN (15:10)
[2020-11-26 16:00] VITALS: BP 95/54
[2020-11-26 20:00] VITALS: BP 96/62
[2020-11-27] VITALS: BP 84/55
[2020-11-27] MEDS: POLYVINYL ALCOHOL OPHTH DROPS 15ML BOTHEYE SCH ×4 (00:15→16:57)
[2020-11-27] MEDS: LACTULOSE 20G/30ML UDC NG SCH ×6 (00:15→21:15)
[2020-11-27 04:00] VITALS: BP 88/62
[2020-11-27] MEDS: PANTOPRAZOLE 40MG DR TABLET PO SCH (06:37)
[2020-11-27] MEDS: BLOOD SUGAR DIAGNOSTIC STRIP TEST SCH ×4 (06:56→21:19)
[2020-11-27 07:12] LABS: BASOPHILS % 0.3 % (0.0-2.0); EOSINOPHILS % 0.8 % (0.0-5.0); HEMATOCRIT. 35.4 % (36.0-48.0); HEMOGLOBIN. 11.9 g/dL (12.0-16.0); LYMPHOCYTES % 22.1 % (20.0-50.0); MEAN CORPUSCULAR VOLUME 92.3 fL (81.0-99.0); MEAN PLATELET VOLUME 10.1 fl (7.4-10.4); MONOCYTES % 13.1 % (2.0-8.0); NEUTROPHILS % 63.7 % (40.0-76.0); PLATELET 170 x1000/uL (130-400); RED BLOOD CELL COUNT 3.84 mill/uL (4.2-5.4); RED CELL DISTRIBUTION WIDTH 18.5 % (11.6-14.6)
[2020-11-27 08:00] VITALS: BP 98/67
[2020-11-27] MEDS ORDERED: POTASSIUM CHLORIDE 20MEQ/PACKET PO NR (09:45)
[2020-11-27] MEDS: CITRIC ACID/SODIUM CITRATE SOLN 30ML UDC PO SCH ×2 (10:05→21:18)
[2020-11-27] MEDS: MEGESTROL ACETATE 400 MG/10 ML UDC PO SCH (10:05)
[2020-11-27] MEDS: ASCORBIC ACID 500 MG TABLET PO SCH (10:05)
[2020-11-27] MEDS: SODIUM CHLORIDE 0.9% 1,000 ML IV SCH (10:05)
[2020-11-27] MEDS: SPIRONOLACTONE 25MG TABLET PO SCH (10:06)
[2020-11-27] MEDS: ZINC SULFATE 220 MG ( 50 ) CAPSULE PO SCH (10:07)
[2020-11-27] MEDS: ASPIRIN 81MG EC TABLET PO SCH (10:07)
[2020-11-27] MEDS: FUROSEMIDE 20MG TABLET PO SCH (10:07)
[2020-11-27] MEDS: LEVETIRACETAM 500MG TABLET PO SCH (10:07)
[2020-11-27] MEDS: INSULIN LISPRO 100 UNITS/ML SUBCUT SCH ×4 (10:18→21:15)
[2020-11-27 12:00] VITALS: BP 118/66
[2020-11-27] MEDS ORDERED: NALOXONE HCL 0.4MG/ML VIAL IV PRN (13:00)
[2020-11-27] MEDS: HYDROMORPHONE HCL/PF 2MG/ML CPJ IV PRN ×2 (13:08→21:18)
[2020-11-27 15:06] LABS: CLARITY URINE CLOUDY (CLEAR); COLOR URINE DARK YELLOW (YELLOW); KETONES URINE TRACE (NEGATIVE); LEUKOCYTE ESTERASE URINE 1+ (NEGATIVE); NITRITE URINE NEGATIVE (NEGATIVE); OCCULT BLOOD URINE 1+ (NEGATIVE); PROTEIN URINE TRACE (NEGATIVE); SPECIFIC GRAVITY URINE 1.021 (1.005-1.030); UROBILINOGEN URINE 0.2 E.U./dL (0.2-1.0)
[2020-11-27 16:00] VITALS: BP 108/71
[2020-11-27] MEDS: HYDROCODONE/ACETAMINOPHEN 5/325MG TABLET PO PRN (17:10)
[2020-11-27 20:38] VITALS: BP 106/71
[2020-11-27 21:35] LABS: PHOSPHORUS 4.5 mg/dL (2.5-4.9)
[2020-11-28] MEDS: POLYVINYL ALCOHOL OPHTH DROPS 15ML BOTHEYE SCH ×3 (01:03→13:34)
[2020-11-28] MEDS: SODIUM CHLORIDE 0.9% 1,000 ML IV SCH (01:03)
[2020-11-28] MEDS: LACTULOSE 20G/30ML UDC NG SCH ×4 (01:03→21:15)
[2020-11-28 02:05] VITALS: BP 102/66
[2020-11-28] MEDS: HYDROMORPHONE HCL/PF 2MG/ML CPJ IV PRN ×3 (05:16→20:50)
[2020-11-28] MEDS: PANTOPRAZOLE 40MG DR TABLET PO SCH (06:26)
[2020-11-28 06:38] LABS: BASOPHILS % 0.2 % (0.0-2.0); EOSINOPHILS % 0.6 % (0.0-5.0); HEMATOCRIT. 38.4 % (36.0-48.0); HEMOGLOBIN. 12.7 g/dL (12.0-16.0); LYMPHOCYTES % 24.6 % (20.0-50.0); MEAN CORPUSCULAR HEMOGLOBIN 31.1 pg (28.0-32.0); MEAN CORPUSCULAR VOLUME 93.9 fL (81.0-99.0); MEAN PLATELET VOLUME 9.6 fl (7.4-10.4); NEUTROPHILS % 60.6 % (40.0-76.0); PLATELET 190 x1000/uL (130-400); RED BLOOD CELL COUNT 4.09 mill/uL (4.2-5.4); RED CELL DISTRIBUTION WIDTH 18.9 % (11.6-14.6)
[2020-11-28] MEDS: BLOOD SUGAR DIAGNOSTIC STRIP TEST SCH ×3 (06:38→20:55)
[2020-11-28 08:00] VITALS: BP 103/73
[2020-11-28] MEDS: FUROSEMIDE 20MG TABLET PO SCH (09:00)
[2020-11-28] MEDS: SPIRONOLACTONE 25MG TABLET PO SCH (09:00)
[2020-11-28] MEDS: ASPIRIN 81MG EC TABLET PO SCH (09:00)
[2020-11-28] MEDS: CITRIC ACID/SODIUM CITRATE SOLN 30ML UDC PO SCH ×2 (10:05→20:50)
[2020-11-28] MEDS: LEVETIRACETAM 500MG TABLET PO SCH (10:05)
[2020-11-28] MEDS: MEGESTROL ACETATE 400 MG/10 ML UDC PO SCH (10:05)
[2020-11-28] MEDS: ZINC SULFATE 220 MG ( 50 ) CAPSULE PO SCH (10:05)
[2020-11-28] MEDS: ASCORBIC ACID 500 MG TABLET PO SCH (10:05)
[2020-11-28] MEDS: INSULIN LISPRO 100 UNITS/ML SUBCUT SCH ×3 (10:23→21:07)
[2020-11-28 12:00] VITALS: BP 107/68
[2020-11-28 16:00] VITALS: BP 115/71
[2020-11-28] MEDS ORDERED: LEVOFLOXACIN 500MG PREMIX 100 ML IV SCH (18:00)
[2020-11-28] MEDS: MEROPENEM 1,000 MG in SODIUM CHLORIDE 0.9% 100 ML IV SCH (19:35)
[2020-11-28 20:00] VITALS: BP 106/65
[2020-11-29] VITALS: BP 129/82
[2020-11-29] MEDS: LACTULOSE 20G/30ML UDC NG SCH ×6 (00:28→21:15)
[2020-11-29] MEDS: POLYVINYL ALCOHOL OPHTH DROPS 15ML BOTHEYE SCH ×4 (00:28→18:53)
[2020-11-29] MEDS: HYDROCODONE/ACETAMINOPHEN 5/325MG TABLET PO PRN (00:29)
[2020-11-29] MEDS: HYDROMORPHONE HCL/PF 2MG/ML CPJ IV PRN ×3 (03:47→19:26)
[2020-11-29 04:00] VITALS: BP 121/74
[2020-11-29] MEDS: BLOOD SUGAR DIAGNOSTIC STRIP TEST SCH ×4 (06:39→21:00)
[2020-11-29] MEDS: PANTOPRAZOLE 40MG DR TABLET PO SCH (06:39)
[2020-11-29] MEDS: MEROPENEM 1,000 MG in SODIUM CHLORIDE 0.9% 100 ML IV SCH ×2 (06:41→18:53)
[2020-11-29 06:53] LABS: BASOPHILS % 0.4 % (0.0-2.0); EOSINOPHILS % 0.6 % (0.0-5.0); LYMPHOCYTES % 10.3 % (20.0-50.0); MEAN CORPUSCULAR VOLUME 93.4 fL (81.0-99.0); MEAN PLATELET VOLUME 9.4 fl (7.4-10.4); MONOCYTES % 13.1 % (2.0-8.0); NEUTROPHILS % 75.6 % (40.0-76.0); PLATELET 229 x1000/uL (130-400); RED BLOOD CELL COUNT 3.86 mill/uL (4.2-5.4); RED CELL DISTRIBUTION WIDTH 18.7 % (11.6-14.6)
[2020-11-29 08:00] VITALS: BP 113/68
[2020-11-29] MEDS: SODIUM CHLORIDE 0.9% 1,000 ML IV SCH ×2 (08:00→23:21)
[2020-11-29] MEDS ORDERED: LORAZEPAM 2MG/ML CPJ IM PRN (08:00)
[2020-11-29] MEDS: LORAZEPAM 2MG/ML CPJ IV PRN ×3 (08:20→21:01)
[2020-11-29] MEDS: ZINC SULFATE 220 MG ( 50 ) CAPSULE PO SCH (09:34)
[2020-11-29] MEDS: CITRIC ACID/SODIUM CITRATE SOLN 30ML UDC PO SCH ×2 (09:34→21:00)
[2020-11-29] MEDS: MEGESTROL ACETATE 400 MG/10 ML UDC PO SCH (09:34)
[2020-11-29] MEDS: ASPIRIN 81MG EC TABLET PO SCH (09:34)
[2020-11-29] MEDS: ASCORBIC ACID 500 MG TABLET PO SCH (09:34)
[2020-11-29] MEDS: LEVETIRACETAM 500MG TABLET PO SCH (09:35)
[2020-11-29] MEDS: FUROSEMIDE 20MG TABLET PO SCH (09:35)
[2020-11-29] MEDS: SPIRONOLACTONE 25MG TABLET PO SCH (09:35)
[2020-11-29] MEDS: INSULIN LISPRO 100 UNITS/ML SUBCUT SCH ×4 (10:11→21:00)
[2020-11-29 12:00] VITALS: BP 128/68
[2020-11-29] MEDS ORDERED: LEVOFLOXACIN 250MG PREMIX 50 ML IV SCH (18:00)
[2020-11-29 20:00] VITALS: BP 124/64
[2020-11-30] VITALS: BP 98/55
[2020-11-30] MEDS: METOCLOPRAMIDE HCL 10MG/2ML VIAL IV SCH ×4 (00:41→17:57)
[2020-11-30] MEDS: PANTOPRAZOLE SODIUM 40 MG/VIAL IV SCH ×2 (00:41→10:50)
[2020-11-30] MEDS: POLYVINYL ALCOHOL OPHTH DROPS 15ML BOTHEYE SCH ×4 (00:45→17:57)
[2020-11-30] MEDS: LACTULOSE 20G/30ML UDC NG SCH ×6 (01:15→21:57)
[2020-11-30 02:23] LABS: BASOPHILS % 0.3 % (0.0-2.0); EOSINOPHILS % 1.2 % (0.0-5.0); HEMATOCRIT. 34.3 % (36.0-48.0); HEMOGLOBIN. 11.5 g/dL (12.0-16.0); LYMPHOCYTES % 27.9 % (20.0-50.0); MEAN CORPUSCULAR HEMOGLOBIN 31.1 pg (28.0-32.0); MEAN CORPUSCULAR VOLUME 92.3 fL (81.0-99.0); MEAN PLATELET VOLUME 9.1 fl (7.4-10.4); MONOCYTES % 12.5 % (2.0-8.0); NEUTROPHILS % 58.1 % (40.0-76.0); PLATELET 197 x1000/uL (130-400); RED BLOOD CELL COUNT 3.72 mill/uL (4.2-5.4); RED CELL DISTRIBUTION WIDTH 18.5 % (11.6-14.6)
[2020-11-30] MEDS: HYDROMORPHONE HCL/PF 2MG/ML CPJ IV PRN ×3 (02:46→18:19)
[2020-11-30 04:00] VITALS: BP 139/61
[2020-11-30] MEDS: MEROPENEM 1,000 MG in SODIUM CHLORIDE 0.9% 100 ML IV SCH ×2 (05:35→17:57)
[2020-11-30] MEDS: LORAZEPAM 2MG/ML CPJ IV PRN (06:19)
[2020-11-30] MEDS: BLOOD SUGAR DIAGNOSTIC STRIP TEST SCH ×4 (06:32→21:57)
[2020-11-30 06:41] LABS: BASOPHILS % 0.4 % (0.0-2.0); EOSINOPHILS % 0.5 % (0.0-5.0); HEMATOCRIT. 34.4 % (36.0-48.0); HEMOGLOBIN. 11.4 g/dL (12.0-16.0); LYMPHOCYTES % 11.4 % (20.0-50.0); MEAN CORPUSCULAR HEMOGLOBIN 30.9 pg (28.0-32.0); MEAN CORPUSCULAR VOLUME 93.6 fL (81.0-99.0); MEAN PLATELET VOLUME 9.3 fl (7.4-10.4); MONOCYTES % 11.3 % (2.0-8.0); NEUTROPHILS % 76.4 % (40.0-76.0); PLATELET 213 x1000/uL (130-400); RED BLOOD CELL COUNT 3.67 mill/uL (4.2-5.4); RED CELL DISTRIBUTION WIDTH 18.7 % (11.6-14.6)
[2020-11-30 08:00] VITALS: BP 115/71
[2020-11-30] MEDS: MEGESTROL ACETATE 400 MG/10 ML UDC PO SCH (10:49)
[2020-11-30] MEDS: CITRIC ACID/SODIUM CITRATE SOLN 30ML UDC PO SCH ×2 (10:49→21:55)
[2020-11-30] MEDS: ZINC SULFATE 220 MG ( 50 ) CAPSULE PO SCH (10:49)
[2020-11-30] MEDS: ASCORBIC ACID 500 MG TABLET PO SCH (10:49)
[2020-11-30] MEDS: SPIRONOLACTONE 25MG TABLET PO SCH (10:50)
[2020-11-30] MEDS: FUROSEMIDE 20MG TABLET PO SCH (10:50)
[2020-11-30] MEDS: LEVETIRACETAM 500MG TABLET PO SCH (10:50)
[2020-11-30] MEDS: ASPIRIN 81MG EC TABLET PO SCH (10:50)
[2020-11-30] MEDS: INSULIN LISPRO 100 UNITS/ML SUBCUT SCH ×4 (11:06→21:58)
[2020-11-30 12:00] VITALS: BP 116/81
[2020-11-30] MEDS: SODIUM CHLORIDE 0.9% 1,000 ML IV SCH (15:37)
[2020-11-30 16:00] VITALS: BP 103/70
[2020-11-30 20:00] VITALS: BP 133/77
[2020-11-30] MEDS: MICAFUNGIN 100 MG in SODIUM CHLORIDE 0.9% 100 ML IV SCH (22:01)
[2020-12-01] VITALS: BP 142/79
[2020-12-01] MEDS: METOCLOPRAMIDE HCL 10MG/2ML VIAL IV SCH ×4 (00:46→18:12)
[2020-12-01] MEDS: HYDROMORPHONE HCL/PF 2MG/ML CPJ IV PRN (00:47)
[2020-12-01] MEDS: POLYVINYL ALCOHOL OPHTH DROPS 15ML BOTHEYE SCH ×4 (00:49→18:12)
[2020-12-01 04:00] VITALS: BP 111/73
[2020-12-01] MEDS: LACTULOSE 20G/30ML UDC NG SCH ×6 (04:14→21:29)
[2020-12-01] MEDS: MEROPENEM 1,000 MG in SODIUM CHLORIDE 0.9% 100 ML IV SCH ×2 (05:37→18:41)
[2020-12-01] MEDS: SODIUM CHLORIDE 0.9% 1,000 ML IV SCH ×2 (05:38→21:30)
[2020-12-01 06:17] LABS: INR 1.2; PARTIAL THROMBOPLASTIN TIME 30.8 sec (23.4-31.0); PROTHROMBIN TIME 13.1 sec (9.6-11.0)
[2020-12-01] MEDS: BLOOD SUGAR DIAGNOSTIC STRIP TEST SCH ×4 (06:27→21:29)
[2020-12-01] MEDS: LORAZEPAM 2MG/ML CPJ IV PRN ×3 (06:34→18:12)
[2020-12-01] MEDS: INSULIN LISPRO 100 UNITS/ML SUBCUT SCH ×4 (07:07→21:29)
[2020-12-01 08:00] VITALS: BP 129/84
[2020-12-01] MEDS: LEVETIRACETAM 500MG TABLET PO SCH (09:00)
[2020-12-01] MEDS: ASPIRIN 81MG EC TABLET PO SCH (09:00)
[2020-12-01] MEDS: SPIRONOLACTONE 25MG TABLET PO SCH (09:00)
[2020-12-01] MEDS: MEGESTROL ACETATE 400 MG/10 ML UDC PO SCH (09:00)
[2020-12-01] MEDS: ASCORBIC ACID 500 MG TABLET PO SCH (09:00)
[2020-12-01] MEDS: ZINC SULFATE 220 MG ( 50 ) CAPSULE PO SCH (09:00)
[2020-12-01] MEDS: FUROSEMIDE 20MG TABLET PO SCH (09:00)
[2020-12-01 12:00] VITALS: BP 127/82
[2020-12-01] MEDS: PANTOPRAZOLE SODIUM 40 MG/VIAL IV SCH (12:00)
[2020-12-01 16:00] VITALS: BP 107/65
[2020-12-01 20:00] VITALS: BP 106/70
[2020-12-01] MEDS: MICAFUNGIN 100 MG in SODIUM CHLORIDE 0.9% 100 ML IV SCH (21:29)
[2020-12-02] VITALS: BP 102/62
[2020-12-02] MEDS: LACTULOSE 20G/30ML UDC NG SCH ×6 (01:16→22:06)
[2020-12-02] MEDS: METOCLOPRAMIDE HCL 10MG/2ML VIAL IV SCH ×5 (01:16→23:47)
[2020-12-02] MEDS: HYDROMORPHONE HCL/PF 2MG/ML CPJ IV PRN (01:17)
[2020-12-02 04:00] VITALS: BP 96/53
[2020-12-02] MEDS: POLYVINYL ALCOHOL OPHTH DROPS 15ML BOTHEYE SCH ×5 (05:35→23:46)
[2020-12-02] MEDS: MEROPENEM 1,000 MG in SODIUM CHLORIDE 0.9% 100 ML IV SCH ×2 (05:36→18:00)
[2020-12-02] MEDS: BLOOD SUGAR DIAGNOSTIC STRIP TEST SCH ×4 (06:36→21:00)
[2020-12-02 08:00] VITALS: BP 121/74
[2020-12-02 08:40] LABS: CHLORIDE 111 mEq/L (98-107)
[2020-12-02 08:45] LABS: PHOSPHORUS 2.8 mg/dL (2.5-4.9)
[2020-12-02] MEDS: MEGESTROL ACETATE 400 MG/10 ML UDC PO SCH (08:58)
[2020-12-02] MEDS: LEVETIRACETAM 500MG TABLET PO SCH (08:59)
[2020-12-02] MEDS: SPIRONOLACTONE 25MG TABLET PO SCH (08:59)
[2020-12-02] MEDS: FUROSEMIDE 20MG TABLET PO SCH (08:59)
[2020-12-02] MEDS: ASCORBIC ACID 500 MG TABLET PO SCH (08:59)
[2020-12-02] MEDS: PANTOPRAZOLE SODIUM 40 MG/VIAL IV SCH (08:59)
[2020-12-02] MEDS: ZINC SULFATE 220 MG ( 50 ) CAPSULE PO SCH (08:59)
[2020-12-02] MEDS: ASPIRIN 81MG EC TABLET PO SCH (08:59)
[2020-12-02] MEDS: INSULIN LISPRO 100 UNITS/ML SUBCUT SCH ×4 (10:25→21:00)
[2020-12-02 10:38] LABS: BASOPHILS % 0.1 % (0.0-2.0); EOSINOPHILS % 1.2 % (0.0-5.0); HEMATOCRIT. 34.3 % (36.0-48.0); HEMOGLOBIN. 11.1 g/dL (12.0-16.0); MEAN CORPUSCULAR HEMOGLOBIN 31.5 pg (28.0-32.0); MEAN CORPUSCULAR VOLUME 96.9 fL (81.0-99.0); MEAN PLATELET VOLUME 8.7 fl (7.4-10.4); MONOCYTES % 10.4 % (2.0-8.0); NEUTROPHILS % 74.3 % (40.0-76.0); PLATELET 179 x1000/uL (130-400); RED BLOOD CELL COUNT 3.54 mill/uL (4.2-5.4); RED CELL DISTRIBUTION WIDTH 18.9 % (11.6-14.6)
[2020-12-02] MEDS ORDERED: SKIN ADHESIVE 0.7 GM EA TOP ONE (13:13)
[2020-12-02] MEDS ORDERED: GLYCOPYRROLATE 0.2 MG/ML 2ML VIAL ONE (13:21)
[2020-12-02] MEDS ORDERED: FENTANYL CITRATE/PF 50MCG/ML 2ML VIAL ONE (13:21)
[2020-12-02] MEDS ORDERED: NEOSTIGMINE METHYLSULFATE 1MG/ML 10 ML VIAL ONE (13:21)
[2020-12-02] MEDS ORDERED: MIDAZOLAM HCL 2 MG/2 ML VIAL ONE (13:21)
[2020-12-02] MEDS ORDERED: PROPOFOL 200MG/20ML VIAL IV ONE (13:21)
[2020-12-02] MEDS ORDERED: ROCURONIUM BROMIDE 10MG/ML VIAL 5ML IV ONE (13:21)
[2020-12-02] MEDS ORDERED: ONDANSETRON HCL 4MG/2ML INJ ONE (13:23)
[2020-12-02] MEDS ORDERED: DEXAMETHASONE 4MG/ML 1ML VIAL ONE (13:23)
[2020-12-02] MEDS ORDERED: IOHEXOL-300 100 ML BOTTLE ONE (13:52)
[2020-12-02] MEDS: SODIUM CHLORIDE 0.9% 1,000 ML IV SCH (14:22)
[2020-12-02] MEDS: ACETAMINOPHEN 325MG TABLET PO PRN (18:56)
[2020-12-02 20:00] VITALS: BP 97/69
[2020-12-02] MEDS: MICAFUNGIN 100 MG in SODIUM CHLORIDE 0.9% 100 ML IV SCH (23:24)
[2020-12-03] VITALS: BP 127/72
[2020-12-03 04:00] VITALS: BP 119/75
[2020-12-03] MEDS: METOCLOPRAMIDE HCL 10MG/2ML VIAL IV SCH ×3 (06:17→18:01)
[2020-12-03] MEDS: MEROPENEM 1,000 MG in SODIUM CHLORIDE 0.9% 100 ML IV SCH ×2 (06:18→18:01)
[2020-12-03] MEDS: SODIUM CHLORIDE 0.9% 1,000 ML IV SCH ×2 (06:20→21:51)
[2020-12-03] MEDS: POLYVINYL ALCOHOL OPHTH DROPS 15ML BOTHEYE SCH ×3 (06:21→18:50)
[2020-12-03 06:23] LABS: BASOPHILS % 0.5 % (0.0-2.0); EOSINOPHILS % 1.6 % (0.0-5.0); HEMATOCRIT. 36.9 % (36.0-48.0); HEMOGLOBIN. 11.9 g/dL (12.0-16.0); LYMPHOCYTES % 20.8 % (20.0-50.0); MEAN CORPUSCULAR HEMOGLOBIN 31.3 pg (28.0-32.0); MEAN PLATELET VOLUME 8.6 fl (7.4-10.4); MONOCYTES % 9.6 % (2.0-8.0); NEUTROPHILS % 67.5 % (40.0-76.0); PLATELET 179 x1000/uL (130-400); RED BLOOD CELL COUNT 3.81 mill/uL (4.2-5.4); RED CELL DISTRIBUTION WIDTH 18.9 % (11.6-14.6)
[2020-12-03] MEDS: LACTULOSE 20G/30ML UDC NG SCH ×5 (06:23→21:51)
[2020-12-03] MEDS: BLOOD SUGAR DIAGNOSTIC STRIP TEST SCH ×4 (06:42→21:50)
[2020-12-03 06:59] LABS: CHLORIDE 115 mEq/L (98-107)
[2020-12-03] MEDS: INSULIN LISPRO 100 UNITS/ML SUBCUT SCH ×4 (08:25→21:00)
[2020-12-03] MEDS: PANTOPRAZOLE SODIUM 40 MG/VIAL IV SCH (08:26)
[2020-12-03] MEDS: MEGESTROL ACETATE 400 MG/10 ML UDC PO SCH (09:52)
[2020-12-03] MEDS: LEVETIRACETAM 500MG TABLET PO SCH (09:52)
[2020-12-03] MEDS: ASCORBIC ACID 500 MG TABLET PO SCH (09:52)
[2020-12-03] MEDS: SPIRONOLACTONE 25MG TABLET PO SCH (09:52)
[2020-12-03] MEDS: ASPIRIN 81MG EC TABLET PO SCH (09:52)
[2020-12-03] MEDS: FUROSEMIDE 20MG TABLET PO SCH (09:52)
[2020-12-03] MEDS: ZINC SULFATE 220 MG ( 50 ) CAPSULE PO SCH (09:53)
[2020-12-03 20:00] VITALS: BP 133/80
[2020-12-03] MEDS: MICAFUNGIN 100 MG in SODIUM CHLORIDE 0.9% 100 ML IV SCH (21:51)
[2020-12-04] VITALS: BP 98/76
[2020-12-04] MEDS: LACTULOSE 20G/30ML UDC NG SCH ×6 (01:26→21:33)
[2020-12-04] MEDS: POLYVINYL ALCOHOL OPHTH DROPS 15ML BOTHEYE SCH ×4 (01:27→18:13)
[2020-12-04] MEDS: METOCLOPRAMIDE HCL 10MG/2ML VIAL IV SCH ×4 (01:27→18:12)
[2020-12-04] MEDS: LORAZEPAM 2MG/ML CPJ IV PRN (01:40)
[2020-12-04 04:00] VITALS: BP 156/75
[2020-12-04] MEDS: MEROPENEM 1,000 MG in SODIUM CHLORIDE 0.9% 100 ML IV SCH ×2 (05:49→18:13)
[2020-12-04] MEDS: BLOOD SUGAR DIAGNOSTIC STRIP TEST SCH ×4 (06:25→21:34)
[2020-12-04 08:00] VITALS: BP 155/74
[2020-12-04] MEDS: PANTOPRAZOLE SODIUM 40 MG/VIAL IV SCH (08:45)
[2020-12-04] MEDS: MEGESTROL ACETATE 400 MG/10 ML UDC PO SCH (08:45)
[2020-12-04] MEDS: ASCORBIC ACID 500 MG TABLET PO SCH (08:46)
[2020-12-04] MEDS: FUROSEMIDE 20MG TABLET PO SCH (08:46)
[2020-12-04] MEDS: LEVETIRACETAM 500MG TABLET PO SCH (08:46)
[2020-12-04] MEDS: ZINC SULFATE 220 MG ( 50 ) CAPSULE PO SCH (08:46)
[2020-12-04] MEDS: SPIRONOLACTONE 25MG TABLET PO SCH (08:46)
[2020-12-04] MEDS: INSULIN LISPRO 100 UNITS/ML SUBCUT SCH ×4 (08:50→21:00)
[2020-12-04] MEDS: ASPIRIN 81MG EC TABLET PO SCH (08:51)
[2020-12-04] MEDS ORDERED: MIDAZOLAM HCL 5 MG/5 ML VIAL ONE (10:36)
[2020-12-04] MEDS ORDERED: FENTANYL CITRATE/PF 50MCG/ML 2ML VIAL ONE (10:36)
[2020-12-04] MEDS ORDERED: MIDAZOLAM HCL 5 MG/5 ML VIAL IV PRN (10:36)
[2020-12-04] MEDS: SODIUM CHLORIDE 0.9% 1,000 ML IV SCH (11:09)
[2020-12-04 13:00] VITALS: BP 142/102
[2020-12-04 16:00] VITALS: BP 125/83
[2020-12-04 20:00] VITALS: BP 109/64
[2020-12-04 20:50] LABS: CHLORIDE 119 mEq/L (98-107)
[2020-12-04] MEDS: MICAFUNGIN 100 MG in SODIUM CHLORIDE 0.9% 100 ML IV SCH (21:33)
[2020-12-05] VITALS: BP 98/77
[2020-12-05 00:09] LABS: BASOPHILS % 0.2 % (0.0-2.0); EOSINOPHILS % 1.1 % (0.0-5.0); HEMATOCRIT. 32.1 % (36.0-48.0); HEMOGLOBIN. 10.9 g/dL (12.0-16.0); LYMPHOCYTES % 16.7 % (20.0-50.0); MEAN CORPUSCULAR HEMOGLOBIN 31.9 pg (28.0-32.0); MEAN CORPUSCULAR VOLUME 93.9 fL (81.0-99.0); MEAN PLATELET VOLUME 8.1 fl (7.4-10.4); MONOCYTES % 9.8 % (2.0-8.0); NEUTROPHILS % 72.2 % (40.0-76.0); PLATELET 240 x1000/uL (130-400); RED BLOOD CELL COUNT 3.42 mill/uL (4.2-5.4); RED CELL DISTRIBUTION WIDTH 18.2 % (11.6-14.6)
[2020-12-05 00:20] LABS: INR 1.3; PROTHROMBIN TIME 13.8 sec (9.6-11.0)
[2020-12-05] MEDS: METOCLOPRAMIDE HCL 10MG/2ML VIAL IV SCH ×4 (01:49→17:59)
[2020-12-05] MEDS: POLYVINYL ALCOHOL OPHTH DROPS 15ML BOTHEYE SCH ×4 (01:50→17:59)
[2020-12-05] MEDS: LACTULOSE 20G/30ML UDC NG SCH ×6 (01:51→20:55)
[2020-12-05 04:00] VITALS: BP 116/69
[2020-12-05] MEDS: INSULIN LISPRO 100 UNITS/ML SUBCUT SCH ×4 (07:50→21:37)
[2020-12-05 08:00] VITALS: BP 126/72
[2020-12-05] MEDS: BLOOD SUGAR DIAGNOSTIC STRIP TEST SCH ×4 (08:08→20:40)
[2020-12-05] MEDS: ASCORBIC ACID 500 MG TABLET PO SCH (09:11)
[2020-12-05] MEDS: MEGESTROL ACETATE 400 MG/10 ML UDC PO SCH (09:11)
[2020-12-05] MEDS: ZINC SULFATE 220 MG ( 50 ) CAPSULE PO SCH (09:11)
[2020-12-05] MEDS: ASPIRIN 81MG EC TABLET PO SCH (09:12)
[2020-12-05] MEDS: SPIRONOLACTONE 25MG TABLET PO SCH (09:12)
[2020-12-05] MEDS: FUROSEMIDE 20MG TABLET PO SCH (09:12)
[2020-12-05] MEDS: PANTOPRAZOLE SODIUM 40 MG/VIAL IV SCH (09:13)
[2020-12-05] MEDS: LEVETIRACETAM 500MG TABLET PO SCH (09:13)
[2020-12-05 12:00] VITALS: BP 135/80
[2020-12-05] MEDS: ACETAMINOPHEN 325MG TABLET PO PRN (12:42)
[2020-12-05 16:00] VITALS: BP 119/69
[2020-12-05] MEDS: ENOXAPARIN 40MG/0.4ML SYR SUBCUT SCH (17:59)
[2020-12-05 20:00] VITALS: BP 113/68
[2020-12-06] VITALS: BP 124/74
[2020-12-06] MEDS: METOCLOPRAMIDE HCL 10MG/2ML VIAL IV SCH ×4 (00:14→18:31)
[2020-12-06] MEDS: LACTULOSE 20G/30ML UDC NG SCH ×7 (00:18→20:20)
[2020-12-06] MEDS: POLYVINYL ALCOHOL OPHTH DROPS 15ML BOTHEYE SCH ×4 (00:19→18:49)
[2020-12-06 04:00] VITALS: BP 143/84
[2020-12-06] MEDS: BLOOD SUGAR DIAGNOSTIC STRIP TEST SCH ×4 (06:05→20:20)
[2020-12-06 06:24] LABS: BASOPHILS % 0.3 % (0.0-2.0); EOSINOPHILS % 0.9 % (0.0-5.0); HEMATOCRIT. 35.8 % (36.0-48.0); HEMOGLOBIN. 11.6 g/dL (12.0-16.0); LYMPHOCYTES % 21.5 % (20.0-50.0); MEAN CORPUSCULAR HEMOGLOBIN 30.9 pg (28.0-32.0); MEAN CORPUSCULAR VOLUME 95.4 fL (81.0-99.0); MEAN PLATELET VOLUME 8.4 fl (7.4-10.4); MONOCYTES % 9.3 % (2.0-8.0); PLATELET 264 x1000/uL (130-400); RED BLOOD CELL COUNT 3.76 mill/uL (4.2-5.4); RED CELL DISTRIBUTION WIDTH 18.7 % (11.6-14.6)
[2020-12-06 07:07] LABS: CHLORIDE 124 mEq/L (98-107)
[2020-12-06 08:00] VITALS: BP 164/82
[2020-12-06] MEDS ORDERED: POTASSIUM CHLORIDE 20MEQ/PACKET PO NR (08:00)
[2020-12-06] MEDS: MEGESTROL ACETATE 400 MG/10 ML UDC PO SCH (08:21)
[2020-12-06] MEDS: PANTOPRAZOLE SODIUM 40 MG/VIAL IV SCH (08:21)
[2020-12-06] MEDS: FUROSEMIDE 20MG TABLET PO SCH (08:22)
[2020-12-06] MEDS: ASCORBIC ACID 500 MG TABLET PO SCH (08:22)
[2020-12-06] MEDS: SPIRONOLACTONE 25MG TABLET PO SCH (08:22)
[2020-12-06] MEDS: ZINC SULFATE 220 MG ( 50 ) CAPSULE PO SCH (08:22)
[2020-12-06] MEDS: LEVETIRACETAM 500MG TABLET PO SCH (08:22)
[2020-12-06] MEDS: ASPIRIN 81MG EC TABLET PO SCH (08:22)
[2020-12-06] MEDS: CLONIDINE 0.1MG TABLET PO PRN (08:23)
[2020-12-06] MEDS: INSULIN LISPRO 100 UNITS/ML SUBCUT SCH ×4 (08:25→20:44)
[2020-12-06] MEDS: DEXTROSE 5% WATER 1,000 ML IV SCH (09:48)
[2020-12-06 12:00] VITALS: BP 95/58
[2020-12-06] MEDS: ENOXAPARIN 40MG/0.4ML SYR SUBCUT SCH (13:16)
[2020-12-06 16:00] VITALS: BP 96/73
[2020-12-06 20:00] VITALS: BP 129/79
[2020-12-07] VITALS: BP 128/84
[2020-12-07] MEDS: METOCLOPRAMIDE HCL 10MG/2ML VIAL IV SCH ×3 (00:33→12:59)
[2020-12-07] MEDS: LACTULOSE 20G/30ML UDC NG SCH ×6 (00:33→21:47)
[2020-12-07] MEDS: POLYVINYL ALCOHOL OPHTH DROPS 15ML BOTHEYE SCH ×3 (00:34→12:59)
[2020-12-07 04:00] VITALS: BP 130/86
[2020-12-07] MEDS: DEXTROSE 5% WATER 1,000 ML IV SCH (04:48)
[2020-12-07] MEDS: ACETAMINOPHEN 325MG TABLET PO PRN (05:53)
[2020-12-07 06:58] LABS: BASOPHILS % 0.5 % (0.0-2.0); EOSINOPHILS % 2.1 % (0.0-5.0); HEMATOCRIT. 35.1 % (36.0-48.0); HEMOGLOBIN. 11.5 g/dL (12.0-16.0); MEAN CORPUSCULAR HEMOGLOBIN 31.5 pg (28.0-32.0); MEAN PLATELET VOLUME 8.8 fl (7.4-10.4); MONOCYTES % 8.7 % (2.0-8.0); NEUTROPHILS % 68.7 % (40.0-76.0); PLATELET 252 x1000/uL (130-400); RED BLOOD CELL COUNT 3.66 mill/uL (4.2-5.4)
[2020-12-07] MEDS: BLOOD SUGAR DIAGNOSTIC STRIP TEST SCH ×4 (07:02→21:46)
[2020-12-07 07:10] LABS: CHLORIDE 129 mEq/L (98-107)
[2020-12-07 07:15] LABS: PHOSPHORUS 2.2 mg/dL (2.5-4.9)
[2020-12-07 08:00] VITALS: BP 144/80
[2020-12-07] MEDS: INSULIN LISPRO 100 UNITS/ML SUBCUT SCH ×4 (08:36→21:53)
[2020-12-07] MEDS: LEVETIRACETAM 500MG TABLET PO SCH (08:40)
[2020-12-07] MEDS: FUROSEMIDE 20MG TABLET PO SCH (08:40)
[2020-12-07] MEDS: ASCORBIC ACID 500 MG TABLET PO SCH (08:40)
[2020-12-07] MEDS: ASPIRIN 81MG EC TABLET PO SCH (08:40)
[2020-12-07] MEDS: ZINC SULFATE 220 MG ( 50 ) CAPSULE PO SCH (08:40)
[2020-12-07] MEDS: SPIRONOLACTONE 25MG TABLET PO SCH (08:40)
[2020-12-07] MEDS: MEGESTROL ACETATE 400 MG/10 ML UDC PO SCH (08:40)
[2020-12-07] MEDS: PANTOPRAZOLE SODIUM 40 MG/VIAL IV SCH (08:41)
[2020-12-07 12:00] VITALS: BP 121/76
[2020-12-07] MEDS: ENOXAPARIN 40MG/0.4ML SYR SUBCUT SCH (13:03)
[2020-12-07] MEDS ORDERED: POTASSIUM PHOS,M-BASIC-D-BASIC 10 MMOL in DEXT 5% WATER 246.6667 ML IV ONE (16:00)
[2020-12-07 20:00] VITALS: BP_SYST 115; BP_SYST 139; BP_DIAS 56; BP_DIAS 73
[2020-12-08] VITALS: BP 106/76
[2020-12-08] MEDS: POLYVINYL ALCOHOL OPHTH DROPS 15ML BOTHEYE SCH ×4 (00:10→17:23)
[2020-12-08] MEDS: METOCLOPRAMIDE HCL 10MG/2ML VIAL IV SCH ×4 (00:10→17:22)
[2020-12-08] MEDS: DEXTROSE 5% WATER 1,000 ML IV SCH ×2 (00:18→22:48)
[2020-12-08 04:00] VITALS: BP 139/84
[2020-12-08] MEDS: LACTULOSE 20G/30ML UDC NG SCH ×5 (06:45→22:47)
[2020-12-08 06:55] LABS: BASOPHILS % 0.5 % (0.0-2.0); EOSINOPHILS % 2.2 % (0.0-5.0); HEMATOCRIT. 40.5 % (36.0-48.0); HEMOGLOBIN. 12.3 g/dL (12.0-16.0); LYMPHOCYTES % 22.3 % (20.0-50.0); MEAN CORPUSCULAR HEMOGLOBIN 31.1 pg (28.0-32.0); MEAN PLATELET VOLUME 9.2 fl (7.4-10.4); MONOCYTES % 9.9 % (2.0-8.0); NEUTROPHILS % 65.1 % (40.0-76.0); PLATELET 230 x1000/uL (130-400); RED BLOOD CELL COUNT 3.97 mill/uL (4.2-5.4); RED CELL DISTRIBUTION WIDTH 19.3 % (11.6-14.6)
[2020-12-08] MEDS: BLOOD SUGAR DIAGNOSTIC STRIP TEST SCH ×4 (07:20→21:00)
[2020-12-08 08:00] VITALS: BP 140/86
[2020-12-08] MEDS: ASPIRIN 81MG EC TABLET PO SCH (08:47)
[2020-12-08] MEDS: MEGESTROL ACETATE 400 MG/10 ML UDC PO SCH (08:47)
[2020-12-08] MEDS: ZINC SULFATE 220 MG ( 50 ) CAPSULE PO SCH (08:47)
[2020-12-08] MEDS: PANTOPRAZOLE SODIUM 40 MG/VIAL IV SCH (08:47)
[2020-12-08] MEDS: SPIRONOLACTONE 25MG TABLET PO SCH (08:48)
[2020-12-08] MEDS: FUROSEMIDE 20MG TABLET PO SCH (08:48)
[2020-12-08] MEDS: ASCORBIC ACID 500 MG TABLET PO SCH (08:48)
[2020-12-08] MEDS: LEVETIRACETAM 500MG TABLET PO SCH (08:48)
[2020-12-08] MEDS: INSULIN LISPRO 100 UNITS/ML SUBCUT SCH ×4 (09:02→23:06)
[2020-12-08] MEDS: ACETAMINOPHEN 650MG/20.3ML UDC PO PRN ×3 (10:55→22:46)
[2020-12-08 12:00] VITALS: BP 124/94
[2020-12-08] MEDS: ENOXAPARIN 40MG/0.4ML SYR SUBCUT SCH (13:20)
[2020-12-08 16:00] VITALS: BP 126/80
[2020-12-08 20:00] VITALS: BP 107/72
[2020-12-09] VITALS: BP 113/79
[2020-12-09] MEDS: LACTULOSE 20G/30ML UDC NG SCH ×6 (01:15→20:49)
[2020-12-09 04:00] VITALS: BP 109/72
[2020-12-09] MEDS: METOCLOPRAMIDE HCL 10MG/2ML VIAL IV SCH ×4 (06:33→18:01)
[2020-12-09] MEDS: POLYVINYL ALCOHOL OPHTH DROPS 15ML BOTHEYE SCH ×4 (06:33→18:00)
[2020-12-09 08:00] VITALS: BP 137/86
[2020-12-09] MEDS: BLOOD SUGAR DIAGNOSTIC STRIP TEST SCH ×4 (08:00→20:52)
[2020-12-09] MEDS: FUROSEMIDE 20MG TABLET PO SCH (08:46)
[2020-12-09] MEDS: ASCORBIC ACID 500 MG TABLET PO SCH (08:46)
[2020-12-09] MEDS: ZINC SULFATE 220 MG ( 50 ) CAPSULE PO SCH (08:46)
[2020-12-09] MEDS: LEVETIRACETAM 500MG TABLET PO SCH (08:46)
[2020-12-09] MEDS: MEGESTROL ACETATE 400 MG/10 ML UDC PO SCH (08:46)
[2020-12-09] MEDS: PANTOPRAZOLE SODIUM 40 MG/VIAL IV SCH (08:46)
[2020-12-09] MEDS: ASPIRIN 81MG EC TABLET PO SCH (08:46)
[2020-12-09] MEDS: SPIRONOLACTONE 25MG TABLET PO SCH (08:54)
[2020-12-09] MEDS: INSULIN LISPRO 100 UNITS/ML SUBCUT SCH ×4 (09:22→20:55)
[2020-12-09 12:00] VITALS: BP 161/96
[2020-12-09] MEDS: ACETAMINOPHEN 325MG TABLET PO PRN (13:00)
[2020-12-09] MEDS: ENOXAPARIN 40MG/0.4ML SYR SUBCUT SCH (13:49)
[2020-12-09] MEDS: CLONIDINE 0.1MG TABLET PO PRN (13:50)
[2020-12-09 14:23] LABS: CLARITY URINE CLOUDY (CLEAR); COLOR URINE DARK YELLOW (YELLOW); KETONES URINE TRACE (NEGATIVE); LEUKOCYTE ESTERASE URINE 1+ (NEGATIVE); NITRITE URINE NEGATIVE (NEGATIVE); OCCULT BLOOD URINE 3+ (NEGATIVE); PROTEIN URINE 2+ (NEGATIVE); SPECIFIC GRAVITY URINE 1.027 (1.005-1.030)
[2020-12-09 16:00] VITALS: BP 104/77
[2020-12-09] MEDS: MORPHINE SULFATE 2 MG/ML CPJ (NOT FOR IM USE) IV PRN (16:24)
[2020-12-09] MEDS ORDERED: NALOXONE HCL 0.4MG/ML VIAL IV PRN (16:30)
[2020-12-09] MEDS: DEXTROSE 5% WATER 1,000 ML IV SCH (18:01)
[2020-12-09 20:00] VITALS: BP 129/70
[2020-12-10] VITALS: BP 105/62
[2020-12-10] MEDS: POLYVINYL ALCOHOL OPHTH DROPS 15ML BOTHEYE SCH ×4 (00:17→18:26)
[2020-12-10] MEDS: METOCLOPRAMIDE HCL 10MG/2ML VIAL IV SCH ×4 (00:18→18:07)
[2020-12-10] MEDS: LACTULOSE 20G/30ML UDC NG SCH ×6 (00:39→20:59)
[2020-12-10] MEDS: MORPHINE SULFATE 2 MG/ML CPJ (NOT FOR IM USE) IV PRN ×3 (02:41→17:11)
[2020-12-10 04:00] VITALS: BP 109/58
[2020-12-10] MEDS: BLOOD SUGAR DIAGNOSTIC STRIP TEST SCH ×4 (05:48→21:04)
[2020-12-10 08:00] VITALS: BP 118/52
[2020-12-10] MEDS: FUROSEMIDE 20MG TABLET PO SCH (09:01)
[2020-12-10] MEDS: LEVETIRACETAM 500MG TABLET PO SCH (09:01)
[2020-12-10] MEDS: SPIRONOLACTONE 25MG TABLET PO SCH (09:01)
[2020-12-10] MEDS: ASPIRIN 81MG EC TABLET PO SCH (09:01)
[2020-12-10] MEDS: ASCORBIC ACID 500 MG TABLET PO SCH (09:01)
[2020-12-10] MEDS: ZINC SULFATE 220 MG ( 50 ) CAPSULE PO SCH (09:02)
[2020-12-10] MEDS: MEGESTROL ACETATE 400 MG/10 ML UDC PO SCH (09:02)
[2020-12-10] MEDS: PANTOPRAZOLE SODIUM 40 MG/VIAL IV SCH (09:02)
[2020-12-10] MEDS: INSULIN LISPRO 100 UNITS/ML SUBCUT SCH ×4 (09:34→21:14)
[2020-12-10 12:00] VITALS: BP 106/69
[2020-12-10] MEDS: ENOXAPARIN 40MG/0.4ML SYR SUBCUT SCH (12:42)
[2020-12-10] MEDS: DEXTROSE 5% WATER 1,000 ML IV SCH (12:43)
[2020-12-10 16:00] VITALS: BP 93/65
[2020-12-10 20:00] VITALS: BP 115/65
[2020-12-10] MEDS: LORAZEPAM 0.5MG TABLET PO PRN (21:00)
[2020-12-10] MEDS ORDERED: INSULIN GLARGINE UD 100 UNITS/ML SYR SUBCUT SCH (22:00)
[2020-12-11] VITALS: BP 109/67
[2020-12-11] MEDS: POLYVINYL ALCOHOL OPHTH DROPS 15ML BOTHEYE SCH ×6 (00:12→23:38)
[2020-12-11] MEDS: LACTULOSE 20G/30ML UDC NG SCH (01:15)
[2020-12-11] MEDS: MORPHINE SULFATE 2 MG/ML CPJ (NOT FOR IM USE) IV PRN (03:56)
[2020-12-11 04:00] VITALS: BP 103/64
[2020-12-11] MEDS: METOCLOPRAMIDE HCL 10MG/2ML VIAL IV SCH ×5 (06:03→23:37)
[2020-12-11] MEDS: BLOOD SUGAR DIAGNOSTIC STRIP TEST SCH ×4 (06:11→21:48)
[2020-12-11 07:09] LABS: BASOPHILS % 0.4 % (0.0-2.0); EOSINOPHILS % 1.6 % (0.0-5.0); HEMOGLOBIN. 11.4 g/dL (12.0-16.0); LYMPHOCYTES % 16.3 % (20.0-50.0); MEAN CORPUSCULAR HEMOGLOBIN 31.3 pg (28.0-32.0); MEAN CORPUSCULAR VOLUME 101.5 fL (81.0-99.0); MEAN PLATELET VOLUME 9.9 fl (7.4-10.4); MONOCYTES % 9.6 % (2.0-8.0); NEUTROPHILS % 72.1 % (40.0-76.0); PLATELET 191 x1000/uL (130-400); RED BLOOD CELL COUNT 3.65 mill/uL (4.2-5.4); RED CELL DISTRIBUTION WIDTH 18.7 % (11.6-14.6)
[2020-12-11 08:00] VITALS: BP 132/73
[2020-12-11] MEDS ORDERED: HYDROCODONE/ACETAMINOPHEN 10/325MG TABLET PO NR (08:43)
[2020-12-11] MEDS: LEVETIRACETAM 500MG TABLET PO SCH (09:59)
[2020-12-11] MEDS: ASCORBIC ACID 500 MG TABLET PO SCH (09:59)
[2020-12-11] MEDS: FUROSEMIDE 20MG TABLET PO SCH (09:59)
[2020-12-11] MEDS: ZINC SULFATE 220 MG ( 50 ) CAPSULE PO SCH (09:59)
[2020-12-11] MEDS: MEGESTROL ACETATE 400 MG/10 ML UDC PO SCH (10:00)
[2020-12-11] MEDS: PANTOPRAZOLE SODIUM 40 MG/VIAL IV SCH (10:00)
[2020-12-11] MEDS: HYDROCODONE/ACETAMINOPHEN 10/325MG TABLET PO PRN (10:02)
[2020-12-11] MEDS: ASPIRIN 81MG TABLET PO SCH (10:20)
[2020-12-11 10:21] LABS: CREATINE KINASE 34 IU/L (26-192)
[2020-12-11] MEDS: INSULIN LISPRO 100 UNITS/ML SUBCUT SCH ×4 (10:41→21:54)
[2020-12-11 12:00] VITALS: BP 122/78
[2020-12-11] MEDS: ENOXAPARIN 40MG/0.4ML SYR SUBCUT SCH (15:22)
[2020-12-11] MEDS: INSULIN GLARGINE UD 100 UNITS/ML SYR SUBCUT SCH ×2 (15:27→21:55)
[2020-12-11 16:00] VITALS: BP 108/76
[2020-12-11 20:00] VITALS: BP_SYST 128; BP_SYST 137; BP_DIAS 60; BP_DIAS 78
[2020-12-12] VITALS: BP_SYST 119; BP_SYST 124; BP_DIAS 73; BP_DIAS 76
[2020-12-12] MEDS: HYDROCODONE/ACETAMINOPHEN 10/325MG TABLET PO PRN ×3 (00:41→20:34)
[2020-12-12] MEDS: MORPHINE SULFATE 2 MG/ML CPJ (NOT FOR IM USE) IV PRN ×4 (03:38→23:35)
[2020-12-12 04:00] VITALS: BP 121/70
[2020-12-12] MEDS: POLYVINYL ALCOHOL OPHTH DROPS 15ML BOTHEYE SCH ×3 (05:13→17:24)
[2020-12-12] MEDS: METOCLOPRAMIDE HCL 10MG/2ML VIAL IV SCH ×3 (05:13→17:13)
[2020-12-12] MEDS: BLOOD SUGAR DIAGNOSTIC STRIP TEST SCH ×4 (05:16→20:33)
[2020-12-12 06:56] LABS: BASOPHILS % 0.5 % (0.0-2.0); EOSINOPHILS % 1.4 % (0.0-5.0); HEMATOCRIT. 32.9 % (36.0-48.0); HEMOGLOBIN. 10.5 g/dL (12.0-16.0); LYMPHOCYTES % 14.5 % (20.0-50.0); MEAN CORPUSCULAR HEMOGLOBIN 31.4 pg (28.0-32.0); MEAN CORPUSCULAR VOLUME 98.5 fL (81.0-99.0); MEAN PLATELET VOLUME 10.3 fl (7.4-10.4); MONOCYTES % 10.2 % (2.0-8.0); NEUTROPHILS % 73.4 % (40.0-76.0); PLATELET 223 x1000/uL (130-400); RED BLOOD CELL COUNT 3.34 mill/uL (4.2-5.4)
[2020-12-12 08:00] VITALS: BP 109/53
[2020-12-12] MEDS: ZINC SULFATE 220 MG ( 50 ) CAPSULE PO SCH (08:39)
[2020-12-12] MEDS: ASCORBIC ACID 500 MG TABLET PO SCH (08:39)
[2020-12-12] MEDS: PANTOPRAZOLE SODIUM 40 MG/VIAL IV SCH (08:39)
[2020-12-12] MEDS: FUROSEMIDE 20MG TABLET PO SCH (08:39)
[2020-12-12] MEDS: LEVETIRACETAM 500MG TABLET PO SCH (08:39)
[2020-12-12] MEDS: ASPIRIN 81MG TABLET PO SCH (08:39)
[2020-12-12] MEDS: MEGESTROL ACETATE 400 MG/10 ML UDC PO SCH (08:39)
[2020-12-12] MEDS: INSULIN LISPRO 100 UNITS/ML SUBCUT SCH ×4 (08:47→21:59)
[2020-12-12] MEDS: LORAZEPAM 0.5MG TABLET PO PRN (10:17)
[2020-12-12] MEDS: INSULIN GLARGINE UD 100 UNITS/ML SYR SUBCUT SCH ×2 (10:22→22:00)
[2020-12-12 12:00] VITALS: BP 116/77
[2020-12-12] MEDS: MICAFUNGIN 150 MG in SODIUM CHLORIDE 0.9% 100 ML IV SCH (14:10)
[2020-12-12] MEDS: ENOXAPARIN 40MG/0.4ML SYR SUBCUT SCH (14:11)
[2020-12-12] MEDS ORDERED: FUROSEMIDE 20MG/2ML VIAL IVP NR (14:45)
[2020-12-12 16:00] VITALS: BP 110/43
[2020-12-12] MEDS: LACTULOSE 20G/30ML UDC PO SCH (20:35)
[2020-12-12 20:37] VITALS: BP 120/82
[2020-12-13] MEDS: METOCLOPRAMIDE HCL 10MG/2ML VIAL IV SCH ×4 (00:36→18:21)
[2020-12-13 00:39] VITALS: BP 142/89
[2020-12-13 04:38] VITALS: BP 135/88
[2020-12-13] MEDS: BLOOD SUGAR DIAGNOSTIC STRIP TEST SCH ×4 (06:24→21:00)
[2020-12-13] MEDS: MORPHINE SULFATE 2 MG/ML CPJ (NOT FOR IM USE) IV PRN (06:44)
[2020-12-13 06:46] LABS: BASOPHILS % 0.2 % (0.0-2.0); EOSINOPHILS % 0.5 % (0.0-5.0); HEMATOCRIT. 31.9 % (36.0-48.0); HEMOGLOBIN. 10.2 g/dL (12.0-16.0); MEAN CORPUSCULAR HEMOGLOBIN 31.2 pg (28.0-32.0); MEAN CORPUSCULAR VOLUME 97.1 fL (81.0-99.0); MEAN PLATELET VOLUME 10.3 fl (7.4-10.4); MONOCYTES % 9.9 % (2.0-8.0); NEUTROPHILS % 77.4 % (40.0-76.0); PLATELET 198 x1000/uL (130-400); RED BLOOD CELL COUNT 3.29 mill/uL (4.2-5.4); RED CELL DISTRIBUTION WIDTH 17.2 % (11.6-14.6)
[2020-12-13] MEDS: INSULIN LISPRO 100 UNITS/ML SUBCUT SCH ×4 (07:50→21:25)
[2020-12-13 08:00] VITALS: BP 124/76
[2020-12-13] MEDS ORDERED: FUROSEMIDE 40MG/4ML VIAL IVP SCH (09:15)
[2020-12-13] MEDS: PANTOPRAZOLE SODIUM 40 MG/VIAL IV SCH (09:30)
[2020-12-13] MEDS: ASPIRIN 81MG TABLET PO SCH (09:31)
[2020-12-13] MEDS: MEGESTROL ACETATE 400 MG/10 ML UDC PO SCH (09:31)
[2020-12-13] MEDS: ZINC SULFATE 220 MG ( 50 ) CAPSULE PO SCH (09:31)
[2020-12-13] MEDS: ASCORBIC ACID 500 MG TABLET PO SCH (09:31)
[2020-12-13] MEDS: LEVETIRACETAM 500MG TABLET PO SCH (09:31)
[2020-12-13] MEDS: INSULIN GLARGINE UD 100 UNITS/ML SYR SUBCUT SCH ×2 (09:46→21:22)
[2020-12-13 10:07] LABS: CREATINE KINASE 39 IU/L (26-192)
[2020-12-13 12:00] VITALS: BP 126/68
[2020-12-13] MEDS: MORPHINE SULFATE 4 MG/ML CPJ (NOT FOR IM USE) IV PRN ×2 (14:52→21:29)
[2020-12-13] MEDS: MICAFUNGIN 150 MG in SODIUM CHLORIDE 0.9% 100 ML IV SCH (15:47)
[2020-12-13 16:00] VITALS: BP 130/76
[2020-12-13 20:00] VITALS: BP 149/71
[2020-12-13 21:00] LABS: INR 1.2; PROTHROMBIN TIME 12.7 sec (9.6-11.0)
[2020-12-13] MEDS: LACTULOSE 20G/30ML UDC PO SCH (21:22)
[2020-12-14] VITALS: BP 98/70
[2020-12-14] MEDS: METOCLOPRAMIDE HCL 10MG/2ML VIAL IV SCH ×5 (01:24→23:00)
[2020-12-14] MEDS: MORPHINE SULFATE 4 MG/ML CPJ (NOT FOR IM USE) IV PRN ×3 (03:38→18:10)
[2020-12-14 04:00] VITALS: BP 103/77
[2020-12-14 06:38] LABS: BASOPHILS % 0.4 % (0.0-2.0); EOSINOPHILS % 1.2 % (0.0-5.0); HEMATOCRIT. 30.7 % (36.0-48.0); HEMOGLOBIN. 10.4 g/dL (12.0-16.0); LYMPHOCYTES % 16.6 % (20.0-50.0); MEAN CORPUSCULAR VOLUME 94.6 fL (81.0-99.0); MEAN PLATELET VOLUME 10.2 fl (7.4-10.4); MONOCYTES % 11.4 % (2.0-8.0); NEUTROPHILS % 70.4 % (40.0-76.0); PLATELET 233 x1000/uL (130-400); RED BLOOD CELL COUNT 3.25 mill/uL (4.2-5.4); RED CELL DISTRIBUTION WIDTH 17.3 % (11.6-14.6)
[2020-12-14] MEDS: BLOOD SUGAR DIAGNOSTIC STRIP TEST SCH ×4 (06:38→21:00)
[2020-12-14 07:28] LABS: INR 1.1
[2020-12-14 08:00] VITALS: BP 149/69
[2020-12-14] MEDS: ZINC SULFATE 220 MG ( 50 ) CAPSULE PO SCH (08:17)
[2020-12-14] MEDS: ASCORBIC ACID 500 MG TABLET PO SCH (08:17)
[2020-12-14] MEDS: MEGESTROL ACETATE 400 MG/10 ML UDC PO SCH (08:17)
[2020-12-14] MEDS: PANTOPRAZOLE SODIUM 40 MG/VIAL IV SCH (08:17)
[2020-12-14] MEDS: LEVETIRACETAM 500MG TABLET PO SCH (08:17)
[2020-12-14] MEDS: HYDROCODONE/ACETAMINOPHEN 10/325MG TABLET PO PRN (08:18)
[2020-12-14] MEDS ORDERED: LIDOCAINE HCL 1% 20ML VIAL (Pyxis) INJ ONE (08:33)
[2020-12-14] MEDS: INSULIN LISPRO 100 UNITS/ML SUBCUT SCH ×4 (08:36→22:52)
[2020-12-14] MEDS ORDERED: SIMETHICONE/SOD BICARB/CIT AC 1 EACH GRAN.EF.PK ONE (08:36)
[2020-12-14] MEDS ORDERED: SODIUM BICARBONATE 4% (2.4MEQ) 5ML VIAL IV ONE (08:37)
[2020-12-14] MEDS ORDERED: FUROSEMIDE 20MG/2ML VIAL IVP SCH (09:00)
[2020-12-14] MEDS: INSULIN GLARGINE UD 100 UNITS/ML SYR SUBCUT SCH ×2 (10:17→22:54)
[2020-12-14] MEDS ORDERED: SODIUM POLYSTYRENE SULFONATE 15 G/60 ML BOT PO NR (11:00)
[2020-12-14] MEDS: SODIUM CHLORIDE 0.9% 1,000 ML IV SCH (11:44)
[2020-12-14 12:00] VITALS: BP 143/64
[2020-12-14 12:29] LABS: CREATINE KINASE 42 IU/L (26-192)
[2020-12-14] MEDS: MICAFUNGIN 150 MG in SODIUM CHLORIDE 0.9% 100 ML IV SCH (15:53)
[2020-12-14 16:00] VITALS: BP 144/81
[2020-12-14 20:00] VITALS: BP 112/61
[2020-12-14] MEDS ORDERED: LACTULOSE 20G/30ML UDC GT SCH (23:00)
[2020-12-15] VITALS: BP 123/72
[2020-12-15] MEDS: MORPHINE SULFATE 4 MG/ML CPJ (NOT FOR IM USE) IV PRN ×2 (00:43→16:29)
[2020-12-15] MEDS ORDERED: ACETAMINOPHEN 650MG/20.3ML UDC GT PRN (01:00)
[2020-12-15 04:00] VITALS: BP 126/78
[2020-12-15] MEDS ORDERED: HYDROCODONE/ACETAMINOPHEN 10/325MG TABLET GT PRN (04:00)
[2020-12-15] MEDS: LORAZEPAM 2MG/ML CPJ IV PRN ×2 (05:56→21:51)
[2020-12-15] MEDS: METOCLOPRAMIDE HCL 10MG/2ML VIAL IV SCH ×4 (05:56→23:10)
[2020-12-15 06:05] LABS: BASOPHILS % 0.4 % (0.0-2.0); EOSINOPHILS % 1.2 % (0.0-5.0); HEMATOCRIT. 33.7 % (36.0-48.0); HEMOGLOBIN. 10.8 g/dL (12.0-16.0); LYMPHOCYTES % 9.9 % (20.0-50.0); MEAN CORPUSCULAR HEMOGLOBIN 30.8 pg (28.0-32.0); MEAN CORPUSCULAR VOLUME 95.9 fL (81.0-99.0); MEAN PLATELET VOLUME 9.8 fl (7.4-10.4); NEUTROPHILS % 75.5 % (40.0-76.0); PLATELET 236 x1000/uL (130-400); RED BLOOD CELL COUNT 3.51 mill/uL (4.2-5.4); RED CELL DISTRIBUTION WIDTH 17.2 % (11.6-14.6)
[2020-12-15 06:13] LABS: INR 1.2; PROTHROMBIN TIME 12.4 sec (9.6-11.0)
[2020-12-15] MEDS: BLOOD SUGAR DIAGNOSTIC STRIP TEST SCH ×4 (07:20→21:52)
[2020-12-15] MEDS: SODIUM CHLORIDE 0.9% 1,000 ML IV SCH (07:50)
[2020-12-15 08:00] VITALS: BP 91/61
[2020-12-15] MEDS ORDERED: MEGESTROL ACETATE 400 MG/10 ML UDC GT SCH (09:00)
[2020-12-15] MEDS: ZINC SULFATE 220 MG ( 50 ) CAPSULE GT SCH (09:00)
[2020-12-15] MEDS: LEVETIRACETAM 500MG/5ML CUP GT SCH ×2 (09:48→21:51)
[2020-12-15] MEDS: ASCORBIC ACID 500 MG TABLET GT SCH (09:48)
[2020-12-15] MEDS: ASPIRIN 81MG TABLET GT SCH (09:48)
[2020-12-15] MEDS: PANTOPRAZOLE SODIUM 40 MG/VIAL IV SCH (09:48)
[2020-12-15] MEDS: INSULIN LISPRO 100 UNITS/ML SUBCUT SCH ×4 (09:49→23:10)
[2020-12-15 12:00] VITALS: BP 97/62
[2020-12-15] MEDS ORDERED: SODIUM POLYSTYRENE SULFONATE 15 G/60 ML BOT PO NR ×2 (12:30→13:00)
[2020-12-15] MEDS: CITRIC ACID/SODIUM CITRATE SOLN 30ML UDC PO SCH ×3 (13:00→16:28)
[2020-12-15] MEDS: INSULIN GLARGINE UD 100 UNITS/ML SYR SUBCUT SCH ×2 (13:29→23:10)
[2020-12-15 16:00] VITALS: BP 100/54
[2020-12-15] MEDS: MICAFUNGIN 150 MG in SODIUM CHLORIDE 0.9% 100 ML IV SCH (16:28)
[2020-12-15] MEDS: LACTULOSE 20G/30ML UDC GT SCH ×2 (16:28→21:51)
[2020-12-15 20:00] VITALS: BP 139/89
[2020-12-16] VITALS: BP 95/63
[2020-12-16] MEDS: MORPHINE SULFATE 4 MG/ML CPJ (NOT FOR IM USE) IV PRN ×3 (03:01→22:01)
[2020-12-16] MEDS: SODIUM CHLORIDE 0.9% 1,000 ML IV SCH ×2 (03:02→22:00)
[2020-12-16 04:00] VITALS: BP 128/86
[2020-12-16 04:15] LABS: BASOPHILS % 0.1 % (0.0-2.0); EOSINOPHILS % 1.6 % (0.0-5.0); HEMATOCRIT. 33.2 % (36.0-48.0); HEMOGLOBIN. 10.5 g/dL (12.0-16.0); MEAN CORPUSCULAR HEMOGLOBIN 30.7 pg (28.0-32.0); MEAN CORPUSCULAR VOLUME 96.5 fL (81.0-99.0); MONOCYTES % 13.5 % (2.0-8.0); NEUTROPHILS % 74.8 % (40.0-76.0); PLATELET 242 x1000/uL (130-400); RED BLOOD CELL COUNT 3.44 mill/uL (4.2-5.4); RED CELL DISTRIBUTION WIDTH 17.5 % (11.6-14.6)
[2020-12-16 04:20] LABS: PHOSPHORUS 5.9 mg/dL (2.5-4.9)
[2020-12-16] MEDS: METOCLOPRAMIDE HCL 10MG/2ML VIAL IV SCH ×3 (06:03→18:31)
[2020-12-16] MEDS: BLOOD SUGAR DIAGNOSTIC STRIP TEST SCH ×4 (07:35→21:34)
[2020-12-16 08:00] VITALS: BP 134/90
[2020-12-16] MEDS: PANTOPRAZOLE SODIUM 40 MG/VIAL IV SCH (09:41)
[2020-12-16] MEDS: LACTULOSE 20G/30ML UDC GT SCH ×2 (09:41→18:30)
[2020-12-16] MEDS: CITRIC ACID/SODIUM CITRATE SOLN 30ML UDC PO SCH ×3 (09:42→18:31)
[2020-12-16] MEDS: ASPIRIN 81MG TABLET GT SCH (09:42)
[2020-12-16] MEDS: ASCORBIC ACID 500 MG TABLET GT SCH (09:42)
[2020-12-16] MEDS: ZINC SULFATE 220 MG ( 50 ) CAPSULE GT SCH (09:42)
[2020-12-16] MEDS: LEVETIRACETAM 500MG/5ML CUP GT SCH ×2 (09:42→21:37)
[2020-12-16] MEDS: INSULIN LISPRO 100 UNITS/ML SUBCUT SCH ×4 (10:01→21:35)
[2020-12-16 12:00] VITALS: BP 116/71
[2020-12-16] MEDS: INSULIN GLARGINE UD 100 UNITS/ML SYR SUBCUT SCH ×2 (13:55→21:36)
[2020-12-16] MEDS: ENOXAPARIN 40MG/0.4ML SYR SUBCUT SCH (14:43)
[2020-12-16] MEDS: LORAZEPAM 2MG/ML CPJ IV PRN (14:43)
[2020-12-16] MEDS: MICAFUNGIN 150 MG in SODIUM CHLORIDE 0.9% 100 ML IV SCH (14:43)
[2020-12-16 16:00] VITALS: BP 114/76
[2020-12-16 20:00] VITALS: BP 127/76
[2020-12-17] VITALS: BP 125/64
[2020-12-17 04:00] VITALS: BP 136/93
[2020-12-17] MEDS: MORPHINE SULFATE 4 MG/ML CPJ (NOT FOR IM USE) IV PRN ×2 (05:32→13:49)
[2020-12-17] MEDS: METOCLOPRAMIDE HCL 10MG/2ML VIAL IV SCH ×2 (05:32)
[2020-12-17 08:00] VITALS: BP 137/85
[2020-12-17] MEDS: LACTULOSE 20G/30ML UDC GT SCH (09:22)
[2020-12-17] MEDS: ASPIRIN 81MG TABLET GT SCH (09:22)
[2020-12-17] MEDS: ASCORBIC ACID 500 MG TABLET GT SCH (09:22)
[2020-12-17] MEDS: CITRIC ACID/SODIUM CITRATE SOLN 30ML UDC PO SCH (09:22)
[2020-12-17] MEDS: ZINC SULFATE 220 MG ( 50 ) CAPSULE GT SCH (09:22)
[2020-12-17] MEDS: PANTOPRAZOLE SODIUM 40 MG/VIAL IV SCH (09:22)
[2020-12-17] MEDS: LEVETIRACETAM 500MG/5ML CUP GT SCH (09:22)
[2020-12-17] MEDS: INSULIN LISPRO 100 UNITS/ML SUBCUT SCH (09:23)
[2020-12-17] MEDS: INSULIN GLARGINE UD 100 UNITS/ML SYR SUBCUT SCH (10:45)
[2020-12-17 12:00] VITALS: BP 126/78
[2020-12-17 13:21] VITALS: BP 126/78
[2020-12-17 13:49] VITALS: BP 126/78
== END 2020-12-17 14:00 | disposition home or self-care (01) | DRG 720 ==
LOC: ER 12:28 → MICUSO 16:31 → 6WST 11-13 13:35 → 6EST 11-26 10:06
PROVIDERS: ADMIT Internal Medicine; ATTEND Internal Medicine
PROC: 02HV33Z Insertion of Infusion Device into Superior Vena Cava, Percutaneous Approach (ICD-10-PCS; principal; 2020-11-19)
PROC: B548ZZA Ultrasonography of Superior Vena Cava, Guidance (ICD-10-PCS; 2020-11-19)
PROC: 0DH63UZ Insertion of Feeding Device into Stomach, Percutaneous Approach (ICD-10-PCS; 2020-12-04)
PROC: 0W9G3ZZ Drainage of Peritoneal Cavity, Percutaneous Approach (ICD-10-PCS; 2020-12-14)
DX: A41.9 Sepsis, unspecified organism (principal); K72.00 Acute and subacute hepatic failure without coma; N17.0 Acute kidney failure with tubular necrosis; G92 Toxic encephalopathy; E43 Unspecified severe protein-calorie malnutrition; D68.9 Coagulation defect, unspecified; E83.39 Other disorders of phosphorus metabolism; D69.6 Thrombocytopenia, unspecified; L89.156 Pressure-induced deep tissue damage of sacral region; E87.0 Hyperosmolality and hypernatremia; I85.10 Secondary esophageal varices without bleeding; E87.4 Mixed disorder of acid-base balance; N39.0 Urinary tract infection, site not specified; R47.01 Aphasia; Z66 Do not resuscitate; E11.9 Type 2 diabetes mellitus without complications; D64.9 Anemia, unspecified; B19.20 Unspecified viral hepatitis C without hepatic coma; G40.909 Epilepsy, unspecified, not intractable, without status epilepticus; K74.60 Unspecified cirrhosis of liver; K21.9 Gastro-esophageal reflux disease without esophagitis; E83.42 Hypomagnesemia; E87.6 Hypokalemia; E88.09 Other disorders of plasma-protein metabolism, not elsewhere classified; N27.1 Small kidney, bilateral; I10 Essential (primary) hypertension; B18.2 Chronic viral hepatitis C; B96.20 Unspecified Escherichia coli [E. coli] as the cause of diseases classified elsewhere; E87.5 Hyperkalemia; K31.9 Disease of stomach and duodenum, unspecified; K44.9 Diaphragmatic hernia without obstruction or gangrene; K76.6 Portal hypertension; F10.20 Alcohol dependence, uncomplicated; K31.89 Other diseases of stomach and duodenum; Z20.822 Contact with and (suspected) exposure to COVID-19; K80.20 Calculus of gallbladder without cholecystitis without obstruction; R13.10 Dysphagia, unspecified; R18.8 Other ascites; Z79.84 Long term (current) use of oral hypoglycemic drugs; Z86.73 Personal history of transient ischemic attack (TIA), and cerebral infarction without residual deficits; Z74.01 Bed confinement status; Z87.891 Personal history of nicotine dependence; Z91.19 Patient's noncompliance with other medical treatment and regimen; Z79.899 Other long term (current) drug therapy; Z88.0 Allergy status to penicillin; H10.9 Unspecified conjunctivitis
CPT/HCPCS: 36415; 36573; 36600; 49083; 70551; 71045; 74018; 74176; 74177; 76700; 76770; 80048; 80053; 80061; 80076; 80305; 80307; 80320; 80329; 81003; 82040; 82140; 82248; 82270; 82375; 82550; 82607; 82746; 82805; 82962; 83036; 83605; 83735; 84100; 84132; 84134; 84145; 84443; 84484; 85025; 86705; 86709; 86803; 87077; 87106; 87186; 87340; 87426; 88108; 88312; 92610; 93005; 93970; 97162; 97166; 99285; C1725; C1893; C9113; J1100; J1170; J1650; J1815; J1940; J1956; J2060; J2185; J2248; J2250; J2270; J2405; J2704; J2710; J2765; J3010; J3411; J3475; J3480; J3490; J7030; J7040; J7050; J7060; J7070; J7517; P9047; Q9967; A4315; G0480